=== PATIENT | female | born 1960 | race Caucasian/White ===

== ENCOUNTER 2018-05-13 14:39 | Observation (INO) ==
--- NOTE | 2018-05-13 15:28 | Emergency Department Note ---
Disposition Clinical Impression: Acute exacerbation of chronic obstructive airways disease Community acquired pneumonia Qualifiers: Laterality: left Lung location: upper lobe of lung Qualified Code(s): J18.1 - Lobar pneumonia, unspecified organism Disposition: Admitted As Inpatient Condition: Good Time of Disposition: 16:59 General Adult HPI - General Chief complaint: ED Shortness of Breath/Dyspnea Stated complaint: Bronchitis Time Seen by Provider: 05/13/18 14:55 Source: patient Mode of arrival: ambulatory Limitations: no limitations Nursing Notes Reviewed: Yes Vital Signs Reviewed: Yes - History of Present Illness HPI Narrative: 57 year old woman with hx significant for COPD on home O2 at night, lung carcinoma s/p radiation, and htn who presents to ED from Dr Mota's office for sob that is not improving. She has been having sob and productive cough for the past 1 month that initially was green production and had course of azithromycin and steroids which improved the green production and is now clear/ brown sputum. She has had multiple courses of steroids which improve her breathing minimally. While at Dr Mota's office today she received IM steroids and duonebs and sent to ED for concern of symptoms worsening and will end up with long hosp admission. She experiences similar symptoms couple times a year. She denies any fever/chills, diplopia, blurry vision, abdominal pain, or N/V but did endorse diffuse chest pain from coughing, neck/thoracic back pain from coughing that does not radiate. She continues to be everyday smoker. Pt Subjective Complaint: SOB, productive cough Onset (ago): month(s) (1) Pain Scale: 2 Consistency: constant Improves with: nothing Worsens with: nothing Associated symptoms: Reports: chest pain, cough. Denies: fever/chills, nausea/ vomiting Treatments Prior to Arrival: other (steroids and duoneb) - Related Data Home Medications Medication Instructions Recorded Confirmed Aspirin 325 mg PO DAILY 05/16/16 05/13/18 Atorvastatin Calcium [Lipitor] 20 mg PO DAILY 05/16/16 05/13/18 Metoprolol [Lopressor] 50 mg PO BID 05/16/16 05/13/18 amLODIPine [Norvasc] 10 mg PO DAILY 05/16/16 05/13/18 Albuterol Neb [Proventil Neb] 2.5 mg IH TID 06/17/17 05/13/18 Quetiapine Fumarate [SEROquel] 100 mg PO HS 02/24/18 05/13/18 Levothyroxine Sodium [Levo-T] 75 mcg PO DAILY 05/13/18 05/13/18 Mirtazapine [Remeron] 15 mg PO HS 05/13/18 05/13/18 OXcarbazepine [Oxcarbazepine] 300 mg PO BID 05/13/18 05/13/18 SUMAtriptan succinate [Imitrex] 50 mg PO DAILY PRN 05/13/18 05/13/18 Umeclidinium Brm/Vilanterol Tr 1 puff IH DAILY 05/13/18 05/13/18 [Anoro Ellipta 62.5-25 Mcg INH] Venlafaxine XR (24 HR) [Effexor XR] 225 mg PO DAILY 05/13/18 05/13/18 Previous Rx's Medication Instructions Recorded Albuterol Sulfate [Albuterol 1 puff IH Q4HR 30 Days inhaler 07/03/16 Inhaler] Ondansetron ODT [Zofran ODT] 4 mg SL Q8HR #60 tab.rapdis 04/15/17 Oxybutynin Chloride [Ditropan Xl] 10 mg PO DAILY #30 tab.er.24 05/20/17 Allergies Allergy/AdvReac Type Severity Reaction Status Date / Time levofloxacin [From Levaquin] Allergy Mild Hives Verified 05/13/18 14:54 diphenhydramine Allergy Hives Verified 05/13/18 14:54 [From Benadryl] egg Allergy Hives Verified 05/13/18 14:54 guaifenesin [From Robitussin] Allergy Hives Verified 05/13/18 14:54 latex Allergy Rash Verified 05/13/18 14:54 Penicillins Allergy Difficulty Verified 05/13/18 14:54 Breathing Tetracycline Allergy Difficulty Verified 05/13/18 14:54 Breathing acetic acid [From VoSol-HC] AdvReac Redness of Verified 05/13/18 14:54 Skin aloe vera AdvReac Redness of Verified 05/13/18 14:54 Skin bacitracin AdvReac Redness of Verified 05/13/18 14:54 [From Neosporin Skin ([id number])] capsaicin AdvReac Redness of Verified 05/13/18 14:54 Skin hydrocortisone AdvReac Redness of Verified 05/13/18 14:54 [From VoSol-HC] Skin Neomycin AdvReac Redness of Verified 05/13/18 14:54 [From Neosporin Skin ([id number])] polymyxin B AdvReac Redness of Verified 05/13/18 14:54 [From Neosporin Skin ([id number])] silver sulfadiazine AdvReac Redness of Verified 05/13/18 14:54 [From Silvadene] Skin All systems ED: reviewed and negative except as stated. Constitutional: Denies: fever, chills ENT ED: Reports: congestion Cardiovascular: Reports: chest pain. Denies: edema Respiratory: Reports: cough, dyspnea, wheezes, sputum production (clear/brown). Denies: hemoptysis Gastrointestinal: Denies: abdominal pain, nausea, vomiting Musculoskeletal: Reports: back pain, neck pain Past Medical History - Past Medical History Medical history: Reports: cancer, hyperlipidemia, hypertension, myocardial infarction, thyroid disease Psychiatric history: Reports: no psych history - Social History Smoking Status: Current every day smoker Smokeless Tobacco Status: No Alcohol use: Reports: none Drug use: Reports: none Physical Exam - General Limitations: no limitations General appearance: alert, in no apparent distress - Head Head exam: atraumatic, normocephalic, normal inspection - Eye Eye exam: Present: normal appearance - ENT ENT exam: mucous membranes moist - Neck Neck exam: Present: normal inspection, tenderness (mid cervical point tenderness ) - Chest Chest inspection: Present: normal inspection, symmetric chest wall rise, tenderness (reproducible with palpation) - Respiratory Respiratory exam: Present: wheezes. Absent: respiratory distress, accessory muscle use - Cardiovascular Cardiovascular exam: Present: regular rate, normal rhythm, normal heart sounds, +S1, +S2 - Abdominal Exam Abdominal exam: Present: soft, Non-Tender. Absent: distention, guarding, rebound, rigidity - Back Exam Back exam: Present: tenderness (point tenderness thoracic) - Neurological Exam Neurological exam: Present: alert - Psychiatric Psychiatric exam: Present: normal affect - Skin Skin exam: Present: warm, dry, intact, normal color Course Course Narrative: She has extensive pulm hx including COPD, lung cancer s/p radiation, and continues to smoke daily. She has had productive cough and sob for last 1 month. She has been on multiple courses steroids and 1 course azithromycin. She is satting 92% on rmair and improved with 2L o2. She has diffuse exp wheezes on auscultation. Will get cxr, cbc, bmp\, lactic, and double duoneb now and reassess breathing after. 1655: Breathing somewhat better since double dose duoneb. Says neck/back pain worse now and will give IR morphine now. CXR shows lingular airspace disease suggestive of pneumonia, will give ceftriaxone and azithromycin and admit to hospitalist service which they accepted. Vital Signs Temperature 97.8 F 05/13/18 14:53 Pulse Rate 68 05/13/18 14:53 Respiratory Rate 20 05/13/18 14:53 Blood Pressure 196/94 05/13/18 14:53 O2 Sat by Pulse Oximetry 92 05/13/18 14:53 Temperature 97.8 F 05/13/18 15:14 Pulse Rate 77 05/13/18 17:00 Respiratory Rate 20 05/13/18 17:00 Blood Pressure 163/81 05/13/18 17:00 O2 Sat by Pulse Oximetry 94 05/13/18 17:00 Oxygen Delivery Oxygen Delivery Nasal Cannula Medical Decision Making - Medical Records Medical records reviewed: Yes I reviewed the patient's medical records. - Lab Data Lab results reviewed: Yes I reviewed the patient's lab results. Result diagrams: 05/13/18 15:35 05/13/18 15:35 Lab Results 05/13/18 05/13/18 05/13/18 Range/Units 15:35 15:35 15:35 WBC 13.2 H (4.3-11.1) K/mcL RBC 4.22 (3.82-4.97) M/mcL Hgb 13.2 (11.5-15.4) g/dL Hct 38.9 (35.3-44.9) % MCV 92.2 (83.0-100.0) fL MCH 31.3 (28.0-33.3) pg MCHC 33.9 (31.6-35.5) g/dL RDW 13.9 (11.5-14.5) % Plt Count 295 (140-400) K/mcL MPV 9.0 L (9.4-12.4) fL Immature Gran % 0.5 (0-4) % Seg Neutrophils % 82.0 % Lymphocytes % 11.4 % Monocytes % 5.3 % Eosinophils % 0.6 % Basophils % 0.2 % Neutrophils # 10.9 H (1.6-8.9) K/mcL Lymphocytes # 1.5 (0.6-4.6) K/mcL Monocytes # 0.7 (0.0-1.3) K/mcL Eosinophils # 0.1 (0.0-0.6) K/mcL Basophils # 0.0 (0.0-0.2) K/mcL Sodium 122 L (136-145) mEq/L Potassium 3.6 (3.5-5.1) mEq/L Chloride 90 L (98-107) mEq/L Carbon Dioxide 25 (23-29) mEq/L BUN 6 (6-20) mg/dL Creatinine 0.55 L (0.60-1.20) mg/dL Est GFR ( Amer) > 60 (> 60) Est GFR (Non-Af Amer) > 60 (> 60) BUN/Creatinine Ratio 11 (6-26) Glucose 111 H (70-105) mg/dL Calculated Osmolality 252 L (280-300) Lactic Acid 0.9 (0.5-2.2) mmol/L Calcium 9.3 (8.6-10.3) mg/dL Troponin I < 0.03 (< 0.04) ng/mL - Radiology Data Radiology results reviewed: Yes I reviewed the patient's radiology results. Chest X-Ray 05/13/18 15:30 IMPRESSION: New airspace disease in the lingula suggesting pneumonia D/ / Vinh Caro MD / Vinh Caro MD Interpreting Provider: Vinh Caro MD - EKG Data EKG #1 EKG attestation: Yes I reviewed and interpreted this EKG. EKG results narrative: Patient's EKG shows a normal sinus rhythm at 67 bpm with poor R-wave progression across the anterior leads but no acute ST or T-wave changes are appreciated since compared to prior EKG from June 2016 no significant changes are appreciated. Attestation Statement - Attestation Attestation: I examined this patient and my medical decision-making was reviewed with the Resident Physician. I agree with the documented findings, disposition and treatment plan as described except to the extent set forth below. Patient is a 57-year-old white female with a history of COPD who has been having a productive cough with increasing shortness breath over the past month. Patient was treated on an outpatient basis with antibiotics and despite antibiotics and multiple doses of steroids has continued to worsen with her breathing. Patient is having audible wheezing with increased work of breathing and oxygen saturation on home O2 is at 92%. Patient was sent by her flush tester for evaluation to the ED today after being seen in the office. I agree with patient's physical exam findings as documented. Patient's EKG is normal sinus rhythm with no acute ischemia appreciated. Patient received breathing treatments and had received steroids at the office just prior to coming to the emergency department. Full lab evaluation cardiac workup and chest x-ray was obtained. Patient's labs show mild leukocytosis and lingular pneumonia is seen on chest x-ray. Patient has failed outpatient antibiotic therapy and will be admitted for further evaluation and IV antibiotics were initiated here in the ED. Breathing treatments have been started. Patient has had some mild improvement. Lactate is within normal limits. Case was discussed with hospitalist who accepted patient for admission.
[2018-05-13] MEDS ORDERED: Ipratropium/Albuterol Neb 3 ML IH ONE (15:30)
[2018-05-13 15:53] LABS: Basophils % 0.2 %; Eosinophils # 0.1 K/mcL (0.0-0.6); Eosinophils % 0.6 %; Hematocrit 38.9 % (35.3-44.9); Hemoglobin 13.2 g/dL (11.5-15.4); Immature Granulocytes % 0.5 % (0-4); Lymphocytes # 1.5 K/mcL (0.6-4.6); Lymphocytes % 11.4 %; Mean Corpuscular HGB Conc 33.9 g/dL (31.6-35.5); Mean Corpuscular Hemoglobin 31.3 pg (28.0-33.3); Mean Corpuscular Volume 92.2 fL (83.0-100.0); Monocytes # 0.7 K/mcL (0.0-1.3); Monocytes % 5.3 %; Neutrophils # 10.9 K/mcL (1.6-8.9); Platelet Count 295 K/mcL (140-400); Red Blood Count 4.22 M/mcL (3.82-4.97); Red Cell Distribution Width 13.9 % (11.5-14.5)
[2018-05-13 16:14] LABS: BUN/Creatinine Ratio 11 (6-26); Blood Urea Nitrogen 6 mg/dL (6-20); Calcium 9.3 mg/dL (8.6-10.3); Carbon Dioxide 25 mEq/L (23-29); Chloride 90 mEq/L (98-107); Glucose 111 mg/dL (70-105); Osmolality,Calculated 252 (280-300); Potassium 3.6 mEq/L (3.5-5.1); Sodium 122 mEq/L (136-145); eGFR For Non-African Americans > 60 (> 60)
[2018-05-13 16:15] LABS: Troponin I < 0.03 ng/mL (< 0.04)
[2018-05-13] MEDS ORDERED: Azithromycin 250 MG TABLET PO ONE (16:20)
[2018-05-13] MEDS ORDERED: cefTRIAXone 1,000 MG in Water for inj. (sterile) 20 ML 10 ML IVP ONE (16:20)
[2018-05-13] MEDS ORDERED: *HR* Morphine Immed Rel 30 MG TABLET PO ONE (16:25)
--- NOTE | 2018-05-13 17:26 | Internal Med History&Physical ---
Date of Encounter: 05/13/18 Time of Encounter: 17:24 Internal Medicine - H&P: HPI Chief complaint: sob and productive cough Admitted From: Emergency Dept Plans for Post Hospital Care: Home History of present illness: Ms. 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 patient undergoing radiation to the lung also had history of hypertension, CAD has had about 3 stents in the past, COPD on home O2 at night and high cholesterol patient was sent from doctors office to the emergency room due to shortness of breath and productive cough has been ongoing for about a month patient was treated with po Zithromax as an outpatient she got better and then became worse again with increased shortness of breath and r wheezing and increased shortness of breath and was sent into the emergency room emergency room given breathing treatment chest x-ray shows a left lingula pneumonia white count is 13.2 on exam patient has bilateral active wheezing patient admitted for COPD exacerbation and treatment for pneumonia. Past Med Surg Social Fam HX - Past Medical History Medical history: cancer, hyperlipidemia, hypertension, myocardial infarction, thyroid disease Psychiatric history: no psych history - Social History Smoking Status: Current every day smoker Smokeless Tobacco Status: No Alcohol use: none Drug use: none Internal Medicine - H&P: Meds Aspirin 325 mg PO DAILY 05/16/16 [History] Atorvastatin Calcium [Lipitor] 20 mg PO DAILY 05/16/16 [History] Metoprolol [Lopressor] 50 mg PO BID 05/16/16 [History] amLODIPine [Norvasc] 10 mg PO DAILY 05/16/16 [History] Albuterol Sulfate [Albuterol Inhaler] 1 puff IH Q4HR 30 Days inhaler 07/03/16 [ Rx] Ondansetron ODT [Zofran ODT] 4 mg SL Q8HR #60 tab.rapdis 04/15/17 [Rx] Oxybutynin Chloride [Ditropan Xl] 10 mg PO DAILY #30 tab.er.24 05/20/17 [Rx] Albuterol Neb [Proventil Neb] 2.5 mg IH TID 06/17/17 [History] Quetiapine Fumarate [SEROquel] 100 mg PO HS 02/24/18 [History] Levothyroxine Sodium [Levo-T] 75 mcg PO DAILY 05/13/18 [History] Mirtazapine [Remeron] 15 mg PO HS 05/13/18 [History] OXcarbazepine [Oxcarbazepine] 300 mg PO BID 05/13/18 [History] SUMAtriptan succinate [Imitrex] 50 mg PO DAILY PRN 05/13/18 [History] Umeclidinium Brm/Vilanterol Tr [Anoro Ellipta 62.5-25 Mcg INH] 1 puff IH DAILY 05/13/18 [History] Venlafaxine XR (24 HR) [Effexor XR] 225 mg PO DAILY 05/13/18 [History] 3 Allergy/AdvReac Type Severity Reaction Status Date / Time levofloxacin [From Levaquin] Allergy Mild Hives Verified 05/13/18 14:54 diphenhydramine Allergy Hives Verified 05/13/18 14:54 [From Benadryl] egg Allergy Hives Verified 05/13/18 14:54 guaifenesin [From Robitussin] Allergy Hives Verified 05/13/18 14:54 latex Allergy Rash Verified 05/13/18 14:54 Penicillins Allergy Difficulty Verified 05/13/18 14:54 Breathing Tetracycline Allergy Difficulty Verified 05/13/18 14:54 Breathing acetic acid [From VoSol-HC] AdvReac Redness of Verified 05/13/18 14:54 Skin aloe vera AdvReac Redness of Verified 05/13/18 14:54 Skin bacitracin AdvReac Redness of Verified 05/13/18 14:54 [From Neosporin Skin ([id number])] capsaicin AdvReac Redness of Verified 05/13/18 14:54 Skin hydrocortisone AdvReac Redness of Verified 05/13/18 14:54 [From VoSol-HC] Skin Neomycin AdvReac Redness of Verified 05/13/18 14:54 [From Neosporin Skin ([id number])] polymyxin B AdvReac Redness of Verified 05/13/18 14:54 [From Neosporin Skin ([id number])] silver sulfadiazine AdvReac Redness of Verified 05/13/18 14:54 [From Silvadene] Skin All Systems PM: A 10-system review of systems was performed and is negative for pertinent findings except as documented above in the HPI. - Constitutional Vitals: Temp Pulse Resp BP Pulse Ox 97.8 F 77 20 163/81 94 05/13/18 15:14 05/13/18 17:00 05/13/18 17:00 05/13/18 17:00 05/13/18 17:00 General appearance: Present: mild distress Exam: done - Eye Eye exam: Present: PERRL, conjuntiva pink, sclera anicteric Pupils: Present: PERRL - Neck Neck exam general surgery: Present: supple, trachea midline. Absent: lymphadenopathy - Respiratory Respiratory exam: Present: decreased breath sounds, prolonged expiratory phase, wheezes - Cardiovascular Cardiovascular exam: Present: RRR, +S1, +S2. Absent: diastolic murmur, gallop, rubs, systolic murmur - GI/Abdominal GI/Abdominal exam: Present: normal bowel sounds, soft, no peritoneal signs. Absent: distended, tenderness - Extremities Exam Extremities exam: Present: warm, radial pulses palpable and symmetrical. Absent : calf tenderness, cyanotic, pedal edema Internal Med - H&P Results - Labs CBC & Chem 7: 05/13/18 15:35 05/13/18 15:35 - Assessment and plan (1) CAD (coronary artery disease) Current Visit: Yes Status: Acute Assessment and plan: Patient with history of stent about 3 stents in the past no chest pain with resume her continue home medication Qualifiers: Coronary Disease-Associated Artery/Lesion type: [place] artery [place] vs. transplanted heart: [place] heart Associated angina: without angina Qualified Code(s): I25.10 - Atherosclerotic heart disease of [place] coronary artery without angina pectoris (2) HTN (hypertension) Current Visit: Yes Status: Chronic Assessment and plan: Chronic and uncontrolled with resume home medication and make adjustment for better blood pressure control Qualifiers: Hypertension type: essential hypertension Qualified Code(s): I10 - Essential (primary) hypertension (3) Hyperlipidemia Current Visit: Yes Status: Chronic Assessment and plan: Chronic we will recheck in a.m. Qualifiers: Hyperlipidemia type: pure hypercholesterolemia Qualified Code(s): E78.00 - Pure hypercholesterolemia, unspecified; E78.0 - Pure hypercholesterolemia (4) Lung metastases Current Visit: No Status: Chronic Assessment and plan: Patient with rectal cancer resection in the past and recently diagnosed with a lung metastasis and undergoing radiation therapy Qualifiers: Laterality: unspecified laterality Qualified Code(s): C78.00 - Secondary malignant neoplasm of unspecified lung (5) Smoker unmotivated to quit Current Visit: No Status: Chronic (6) Acute exacerbation of chronic obstructive airways disease Current Visit: Yes Status: Acute Assessment and plan: COPD exacerbation due to pneumonia (7) Community acquired pneumonia Current Visit: Yes Status: Acute Assessment and plan: Community-acquired pneumonia with failed outpatient treatment Was started on Levaquin IV and send sputum and blood cultures Qualifiers: Laterality: left Lung location: upper lobe of lung Qualified Code(s): J18.1 - Lobar pneumonia, unspecified organism (8) Rectal cancer Current Visit: No Status: Acute Assessment and plan: Patient had resection with colostomy - Time Spent With Patient Total time spent is greater than 50% in coordination of care (as documented) at patient's floor/unit and/or counseling patient:
[2018-05-13] MEDS ORDERED: Naloxone 0.4 MG/ML INJ IVP PRN (17:36)
[2018-05-13] MEDS ORDERED: SUMAtriptan succinate 50 MG TABLET PO PRN (17:40)
[2018-05-13] MEDS ORDERED: Ipratropium/Albuterol Neb 3 ML IH PRN (17:43)
[2018-05-13] MEDS: Ipratropium/Albuterol Neb 3 ML IH SCH ×2 (20:27→23:40)
[2018-05-13] MEDS: 0.9 % Sodium Chloride 1,000 ML IVC SCH (20:45)
[2018-05-13] MEDS: Mirtazapine 15 MG TABLET PO SCH (20:48)
[2018-05-13] MEDS: OXcarbazepine 150 MG TABLET PO SCH (20:48)
[2018-05-13] MEDS: traMADol 50 MG TABLET PO PRN (20:48)
[2018-05-14] MEDS: MethylPREDNISolone 40 MG/ML VIAL IVP SCH ×4 (00:29→23:34)
[2018-05-14] MEDS: Acetaminophen 325 MG TABLET PO PRN ×2 (01:48→05:56)
[2018-05-14] MEDS: Ipratropium/Albuterol Neb 3 ML IH SCH ×6 (03:59→23:48)
[2018-05-14 04:14] LABS: Hematocrit 36.3 % (35.3-44.9); Hemoglobin 12.3 g/dL (11.5-15.4); Mean Corpuscular HGB Conc 33.9 g/dL (31.6-35.5); Mean Corpuscular Hemoglobin 31.2 pg (28.0-33.3); Mean Corpuscular Volume 92.1 fL (83.0-100.0); Mean Platelet Volume 9.1 fL (9.4-12.4); Platelet Count 288 K/mcL (140-400); Red Blood Count 3.94 M/mcL (3.82-4.97); Red Cell Distribution Width 14.1 % (11.5-14.5)
[2018-05-14 04:41] LABS: Alanine Aminotransferase 11 Units/L (7-52); Albumin 3.9 g/dL (3.5-5.7); Albumin/Globulin Ratio 1.4 (1.1-2.2); Alkaline Phosphatase 85 Units/L (34-104); Aspartate Amino Transferase 10 Units/L (13-39); BUN/Creatinine Ratio 25 (6-26); Bilirubin,Total 0.2 mg/dL (0.3-1.0); Blood Urea Nitrogen 14 mg/dL (6-20); Carbon Dioxide 23 mEq/L (23-29); Chloride 97 mEq/L (98-107); Cholesterol 188 mg/dL (< 200); Globulin 2.7 g/dL (2.4-3.5); Glucose 161 mg/dL (70-105); HDL Cholesterol 62 mg/dL (40-59); LDL Cholesterol,Calculated 111 mg/dL (0-99); Magnesium 1.9 mg/dL (1.6-2.6); Osmolality,Calculated 268 (280-300); Potassium 4.8 mEq/L (3.5-5.1); Sodium 127 mEq/L (136-145); Total Protein 6.6 g/dL (6.4-8.9); Triglycerides 77 mg/dL (< 150); eGFR For Non-African Americans > 60 (> 60)
[2018-05-14] MEDS: traMADol 50 MG TABLET PO PRN (05:20)
[2018-05-14] MEDS ORDERED: Levofloxacin 750 MG/150 ML 750 MG/150 ML BAG IVPB SCH (09:00)
[2018-05-14] MEDS: OXcarbazepine 150 MG TABLET PO SCH ×2 (09:16→20:56)
[2018-05-14] MEDS: Aspirin 325 MG TABLET PO SCH (09:16)
[2018-05-14] MEDS: amLODIPine 5 MG TABLET PO SCH (09:17)
[2018-05-14] MEDS: Venlafaxine XR (24 HR) 75 MG CAP.ER.24H PO SCH (09:18)
--- NOTE | 2018-05-14 09:18 | Internal Med Progress Note ---
Hospitalist Progress Note - Encounter Date of Encounter: 05/14/18 Time of Encounter: 09:15 - Subjective Interval History: Examined at bedside today, no acute changes overnight. Continuing to report shortness of breath, worsens with exertion - Exam Vitals: Temp Pulse Resp BP Pulse Ox 98.0 F 75 17 154/91 94 05/14/18 06:55 05/14/18 06:55 05/14/18 06:55 05/14/18 06:55 05/14/18 06:55 Exam: PHYSICAL EXAMINATION: GENERAL: The patient is an ill-appearing female with mild respiratory distress. She is alert and oriented x3. HEENT: Head is normocephalic and atraumatic. Extraocular muscles are intact. Pupils are equal, round, and reactive to light and accommodation. NECK: Supple. No carotid bruits. No lymphadenopathy or thyromegaly. LUNGS: Decreased breath sounds, prolonged expiratory phase and expiratory wheezing HEART: Regular rate and rhythm, S1, S2 without murmur. ABDOMEN: Soft, nontender, and nondistended. Positive bowel sounds. No hepatosplenomegaly was noted. EXTREMITIES: Without any cyanosis, clubbing, rash, lesions or edema. SKIN: No ulceration or induration present. - Assessment and Plan (1) Community acquired pneumonia Current Visit: Yes Status: Acute Assessment and Plan: Presented from pulmonology office Reporting a one-month history of shortness of breath and a productive cough Producing brown/isaac sputum 1 month Chest x-ray shows new airspace disease in the lingula suggestive of pneumonia Continue to treat with aerosols, IV steroids and Levaquin Send sputum for cultures Check urine antigens for strep pneumo and legionella Blood cultures pending Consult to pulmonology, thank you and I appreciate your recommendations 05/14--stable overnight, continuing to require supplemental O2 at 2 L nasal cannula. Continuing to have dyspnea with exertion and productive cough. Lungs are clear/diminished throughout with expiratory wheezing, prolonged expiratory phase. Continue aerosols, IV steroids and Levaquin. Discussed IV antibiotics which upset the patient as she reports a sensitivity to Levaquin however this is not a true allergy. Otherwise patient in agreement with plan of care. She is worried that the Levaquin will cause Clostridium difficile. We will add probiotics. She has remained afebrile and does not appear to be toxic. (2) Acute exacerbation of chronic obstructive airways disease Current Visit: Yes Status: Acute Assessment and Plan: 2/2 community aquired PNA treat as above (3) CAD (coronary artery disease) Current Visit: Yes Status: Acute Assessment and Plan: CAD per hx denies any chest pain 3 stents per hx continue cardiac meds (4) HTN (hypertension) Current Visit: Yes Status: Chronic Assessment and Plan: HTN per hx; stable, continue anti HTN med (5) Hyperlipidemia Current Visit: Yes Status: Chronic Assessment and Plan: HLD per hx; continue statin (6) Rectal cancer Current Visit: No Status: Acute Assessment and Plan: per hx follow with [facility] f/u scheduled 05/28 per patient (7) Lung metastases Current Visit: No Status: Chronic Assessment and Plan: as above consult pulmonology for further evaluation and recommendations presented with dyspnea, CAP, AECOPD found to have hyponatremia (8) Smoker unmotivated to quit Current Visit: No Status: Chronic - Time Spent with Patient Total time spent is greater than 50% in coordination of care (as documented) at patient's floor/unit and/or counseling patient: less than 15 minutes Plan of Care Discussed with: patient Internal Medicine: Result - Labs CBC & Chem 7: 05/14/18 03:55 05/14/18 03:55 Labs: Short CBC 05/14/18 Range/Units 03:55 WBC 12.4 H (4.3-11.1) K/mcL Hgb 12.3 (11.5-15.4) g/dL Hct 36.3 (35.3-44.9) % Plt Count 288 (140-400) K/mcL BMP 05/14/18 03:55 Sodium 127 L Potassium 4.8 D Chloride 97 L Carbon Dioxide 23 BUN 14 Creatinine 0.57 L Glucose 161 H Calcium 9.0 Cardiac Enzymes 05/13/18 05/14/18 Range/Units 21:43 03:55 Troponin I < 0.03 < 0.03 (< 0.04) ng/mL Liver Function 05/14/18 Range/Units 03:55 Total Bilirubin 0.2 L (0.3-1.0) mg/dL AST 10 L (13-39) Units/L ALT 11 (7-52) Units/L Alkaline Phosphatase 85 (34-104) Units/L Albumin 3.9 (3.5-5.7) g/dL Consult Discharge Plan - Plan Referrals: Baltazar Chirinos DO [Primary Care Provider] - (1) Community acquired pneumonia Qualifiers: Laterality: left Lung location: upper lobe of lung Qualified Code(s): J18.1 - Lobar pneumonia, unspecified organism (3) CAD (coronary artery disease) Qualifiers: Coronary Disease-Associated Artery/Lesion type: [place] artery [place] vs. transplanted heart: [place] heart Associated angina: without angina Qualified Code(s): I25.10 - Atherosclerotic heart disease of [place] coronary artery without angina pectoris (4) HTN (hypertension) Qualifiers: Hypertension type: essential hypertension Qualified Code(s): I10 - Essential (primary) hypertension (5) Hyperlipidemia Qualifiers: Hyperlipidemia type: pure hypercholesterolemia Qualified Code(s): E78.00 - Pure hypercholesterolemia, unspecified; E78.0 - Pure hypercholesterolemia (7) Lung metastases Qualifiers: Laterality: unspecified laterality Qualified Code(s): C78.00 - Secondary malignant neoplasm of unspecified lung
[2018-05-14] MEDS: 0.9 % Sodium Chloride 1,000 ML IVC SCH (09:21)
--- NOTE | 2018-05-14 09:30 | Pulmonology Consult Note ---
<Mateo Mota W - Last Filed: 05/14/18 16:50> Date of Encounter: 05/14/18 Medications and Allergies Aspirin 325 mg PO DAILY 05/16/16 [History] Atorvastatin Calcium [Lipitor] 20 mg PO DAILY 05/16/16 [History] Metoprolol [Lopressor] 50 mg PO BID 05/16/16 [History] amLODIPine [Norvasc] 10 mg PO DAILY 05/16/16 [History] Albuterol Sulfate [Albuterol Inhaler] 1 puff IH Q4HR 30 Days inhaler 07/03/16 [ Rx] Ondansetron ODT [Zofran ODT] 4 mg SL Q8HR #60 tab.rapdis 04/15/17 [Rx] Oxybutynin Chloride [Ditropan Xl] 10 mg PO DAILY #30 tab.er.24 05/20/17 [Rx] Albuterol Neb [Proventil Neb] 2.5 mg IH TID 06/17/17 [History] Quetiapine Fumarate [SEROquel] 100 mg PO HS 02/24/18 [History] Levothyroxine Sodium [Levo-T] 75 mcg PO DAILY 05/13/18 [History] Mirtazapine [Remeron] 15 mg PO HS 05/13/18 [History] OXcarbazepine [Oxcarbazepine] 300 mg PO BID 05/13/18 [History] SUMAtriptan succinate [Imitrex] 50 mg PO DAILY PRN 05/13/18 [History] Umeclidinium Brm/Vilanterol Tr [Anoro Ellipta 62.5-25 Mcg INH] 1 puff IH DAILY 05/13/18 [History] Venlafaxine XR (24 HR) [Effexor XR] 225 mg PO DAILY 05/13/18 [History] 3 Allergy/AdvReac Type Severity Reaction Status Date / Time levofloxacin [From Levaquin] Allergy Mild Hives Verified 05/13/18 14:54 diphenhydramine Allergy Hives Verified 05/13/18 14:54 [From Benadryl] egg Allergy Hives Verified 05/13/18 14:54 guaifenesin [From Robitussin] Allergy Hives Verified 05/13/18 14:54 latex Allergy Rash Verified 05/13/18 14:54 Penicillins Allergy Difficulty Verified 05/13/18 14:54 Breathing Tetracycline Allergy Difficulty Verified 05/13/18 14:54 Breathing acetic acid [From VoSol-HC] AdvReac Redness of Verified 05/13/18 14:54 Skin aloe vera AdvReac Redness of Verified 05/13/18 14:54 Skin bacitracin AdvReac Redness of Verified 05/13/18 14:54 [From Neosporin Skin ([id number])] capsaicin AdvReac Redness of Verified 05/13/18 14:54 Skin hydrocortisone AdvReac Redness of Verified 05/13/18 14:54 [From VoSol-HC] Skin Neomycin AdvReac Redness of Verified 05/13/18 14:54 [From Neosporin Skin (cut-krw-[id number])] polymyxin B AdvReac Redness of Verified 05/13/18 14:54 [From Neosporin Skin ([id number])] silver sulfadiazine AdvReac Redness of Verified 05/13/18 14:54 [From Silvadene] Skin All Systems: The remainder of the systems were reviewed and are negative Physical Examination Vital Signs: Vital Signs, Last 4 Hours Temp Pulse Resp BP Pulse Ox 05/14/18 16:24 97.8 F 82 16 130/72 98 Results - Laboratory Findings CBC and BMP: 05/14/18 03:55 05/14/18 03:55 Abnormal lab findings: Abnormal lab results WBC 12.4 K/mcL (4.3-11.1) H 05/14/18 03:55 MPV 9.1 fL (9.4-12.4) L 05/14/18 03:55 Neutrophils # 10.9 K/mcL (1.6-8.9) H 05/13/18 15:35 Sodium 127 mEq/L (136-145) L 05/14/18 03:55 Chloride 97 mEq/L (98-107) L 05/14/18 03:55 Creatinine 0.57 mg/dL (0.60-1.20) L 05/14/18 03:55 Glucose 161 mg/dL (70-105) H 05/14/18 03:55 Calculated Osmolality 268 (280-300) L 05/14/18 03:55 Total Bilirubin 0.2 mg/dL (0.3-1.0) L 05/14/18 03:55 AST 10 Units/L (13-39) L 05/14/18 03:55 B-Natriuretic Peptide 183 pg/mL (Less than 100) H 05/14/18 03:55 LDL Cholesterol, Calc 111 mg/dL (0-99) H 05/14/18 03:55 HDL Cholesterol 62 mg/dL (40-59) H 05/14/18 03:55 - Microbiology Findings Microbiology Findings: Microbiology, Last 48 Hours 05/14/18 14:40 Legionella Antigen - Final Urine,Clean Catch Streptococcus pneumoniae Antigen (M - Final - Clinical Findings Intake & Output: Intake & Output 05/14/18 05/14/18 05/14/18 07:59 15:59 23:59 Intake Total 1120 / 1120 Balance 1120 / 1120 Consult Discharge Plan - Plan Referrals: Baltazar Chirinos DO [Primary Care Provider] - - Attending Attestation I examined this patient and my medical decision-making was reviewed with the Resident Physician. I agree with the documented findings, disposition and treatment plan as described except to the extent set forth below. We independently had [id number] contact with the patient Patient seen and examined at bedside Labs, radiology, chart personally reviewed. Impression: 1. AECOPD 2. Pneumonia 3. Shoulder Pain-suspected musculoskeletal pain cannot rule out malignancy 4. Tobacco Abuse Recs: 1. Agree with IV steroids today with transition to oral glucocorticoids tomorrow prednisone 40 mg with a plan to taper over 2 weeks. Cont scheduled bronchodilators; 2. Transition from Levaquin because of history of C. difficile with this antibiotic as well as possibility of QT prolongation to third-generation cephalosporin (ceftriaxone) and doxycycline did not plan to treat for 7 day course she has a penicillin allergy but has taken cephalexin in the past without untoward effect. Sputum blood cultures pending 3. Recommend CT of the chest and the shoulder (noncontrasted); narcotic as needed for pain control 4. Tobacco cessation counseling given <Marvin Donaldson - Last Filed: 05/14/18 17:17> Date of Encounter: 05/14/18 Time of Encounter: 09:00 Assessment and Plan (1) Pneumonia Current Visit: Yes Status: Acute - secondary to her Hx of COPD, and extensive smoking history (1 pack a day for 30 yrs) - her CXR showed left lingular PNA - currently on solumedrol 40mg, levafloxacin and duonebs. Recommended transition from Levaquin to 3rd generation cephalosporin and doxycycline because of possibility of QT prolongation. - currently on room air satting > 89%, use suppl oxygen as needed to keep the sats optimal. Blood and sputum cultures pending Qualifiers: Qualified Code(s): J18.9 - Pneumonia, unspecified organism (2) COPD (chronic obstructive pulmonary disease) Current Visit: Yes Status: Acute -Patient has a history of COPD. She takes Proventil, Anoro ellipta at home -Endorsed shortness of breath and productive cough when she came to see her fitness/wellness director yesterday and that is when she was sent to the ER. Chest x-ray in the ED showed left lingula pneumonia. -WBC was 13.2 on admission currently trending down to 12.4. Patient is currently on solumedrol 40 mg, DuoNeb's when necessary and Levaquin. Transition to third generation cephalosporin because of possibility of QT prolongation -Transition to PO prednisone tomorrow and taper over 2 weeks. Qualifiers: Qualified Code(s): J44.9 - Chronic obstructive pulmonary disease, unspecified (3) Shoulder pain Current Visit: Yes Status: Acute -Patient endorses left shoulder pain since yesterday. It is likely that the left shoulder pain could be secondary to too much of agitation secondary to progressive coughing. However, one cannot rule out the possibility of malignancy given her history of colon cancer. 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 Her last Chest CT showed a left lung nodules which was stable compared to the previous exam. There were also evidence for superior mediainal lymph node . - patient is scheduled for her repeat CT in a month from now (5) Tobacco abuse Current Visit: Yes Status: Acute -She has a history of tobacco abuse. Currently she has no plans to discontinue smoking. -Consult on smoking cessation. 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 Patient endorses she has been having SOb and productive cough for the last one month and was prescribed Zithromax by her PCP, which did not help with her symptoms. She saw Dr Garcia yesterday and was sent to the ED for her worsening symptoms. Most recent CXR showed left lingular pneumonia with an elevated WBC (13.2) . Patient is currently on duonebs , solumedrol 40mg , and levofloxacin . Patient sees Dr Olivares at the [facility] and recelty had astereotactic radiotherapy. Her last CT Scan of the chest showed Left lung nodules which were stable compared to the previous exam. Patient is scheduled to follow up for her next CT in a month. Her last biopsy of the left lower lobe lung nodule on 2016 had showed adenocarcinoma consistent wth metastatic colorectal cancer. \ Patient was endorsing some moderate distress when i met her at the bedside. She endorsed L shoulder pain . Her physical exam showed bilateral expiratory wheezing. Past Med Surg Social Fam HX - Past Medical History Medical history: cancer, hyperlipidemia, hypertension, myocardial infarction, thyroid disease Psychiatric history: no psych history - Social History Smoking Status: Current every day smoker Smokeless Tobacco Status: No Alcohol use: none Drug use: none - Family History Mother Living Status: Hx Family Cardiac Disorders: Yes Father Living Status: All Systems: The remainder of the systems were reviewed and are negative Physical Examination Vital Signs: Vital Signs, Last 4 Hours Temp Pulse Resp BP Pulse Ox 05/14/18 06:55 98.0 F 75 17 154/91 94 General appearance: alert (mild distress due to L shoulder pain) Auscultation: bilateral: wheezes (expiratry wheezing) Cardiovascular: regular rate and rhythm Gastrointestinal: soft, non-tender, non-distended Extremities: no cyanosis, no edema, no clubbing Musculoskeletal: other (L shoulder pain) Results - Laboratory Findings CBC and BMP: 05/14/18 03:55 05/14/18 03:55 Abnormal lab findings: Abnormal lab results WBC 12.4 K/mcL (4.3-11.1) H 05/14/18 03:55 MPV 9.1 fL (9.4-12.4) L 05/14/18 03:55 Neutrophils # 10.9 K/mcL (1.6-8.9) H 05/13/18 15:35 Sodium 127 mEq/L (136-145) L 05/14/18 03:55 Chloride 97 mEq/L (98-107) L 05/14/18 03:55 Creatinine 0.57 mg/dL (0.60-1.20) L 05/14/18 03:55 Glucose 161 mg/dL (70-105) H 05/14/18 03:55 Calculated Osmolality 268 (280-300) L 05/14/18 03:55 Total Bilirubin 0.2 mg/dL (0.3-1.0) L 05/14/18 03:55 AST 10 Units/L (13-39) L 05/14/18 03:55 B-Natriuretic Peptide 183 pg/mL (Less than 100) H 05/14/18 03:55 LDL Cholesterol, Calc 111 mg/dL (0-99) H 05/14/18 03:55 HDL Cholesterol 62 mg/dL (40-59) H 05/14/18 03:55 - Clinical Findings Intake & Output: Intake & Output 05/13/18 05/14/18 05/14/18 23:59 07:59 15:59 Intake Total 1000 / 1000 Balance 1000 / 1000 Weight 80.3 kg
[2018-05-14] MEDS: Umeclidinium Brm/Vilanterol Tr [Anoro Ellipta 62.5-2 IH SCH (10:00)
--- NOTE | 2018-05-14 14:32 | Electrocardiograph Report ---
[address] [address] Test Date: 2018-05-13 Pat Name: Nuris Joy Department: EXAM2 Room: 3B Gender: F Optometric Coordinator: : 1960 Requested By: Yohana Jackson Order Number: [id number] Reading MD: Kaitlin Shahid Measurements Intervals [place] Rate: 67 P: 72 MS: 171 QRS: 41 QRSD: 117 T: 77 QT: 419 QTc: 443 Interpretive Statements Sinus rhythm Probable left atrial enlargement Nonspecific intraventricular conduction delay Electronically Signed On 05-14-2018 14:30:36 EDT by Kaitlin Shahid
[2018-05-14] MEDS ORDERED: Albuterol 2.5 MG/3 ML NEBULIZER IH PRN (15:13)
[2018-05-14] MEDS: *HR* HYDROcodone/Acet 5/325 mg TABLET PO PRN (15:28)
[2018-05-14] MEDS ORDERED: Doxycycline 100 MG in 0.9 % Sodium Chloride Mini Bag 100 ML IVPB SCH (18:00)
[2018-05-14] MEDS ORDERED: cefTRIAXone 2,000 MG in Water for inj. (sterile) 20 ML 20 ML IVP SCH (18:00)
[2018-05-14] MEDS: Mirtazapine 15 MG TABLET PO SCH (20:56)
[2018-05-15] MEDS: *HR* HYDROcodone/Acet 5/325 mg TABLET PO PRN ×2 (01:51→12:47)
[2018-05-15] MEDS: Ipratropium/Albuterol Neb 3 ML IH SCH ×4 (03:56→15:50)
[2018-05-15] MEDS ORDERED: *HR* Enoxaparin 40 MG/0.4 ML SYRINGE SQ SCH (06:00)
--- NOTE | 2018-05-15 07:18 | Pulmonology Progress Note ---
<Marvin Donaldson - Last Filed: 05/15/18 11:01> Date of Encounter: 05/15/18 Assessment and Plan (1) Pneumonia Current Visit: Yes Status: Acute Qualifiers: Qualified Code(s): J18.9 - Pneumonia, unspecified organism (2) COPD (chronic obstructive pulmonary disease) Current Visit: Yes Status: Acute Qualifiers: Qualified Code(s): J44.9 - Chronic obstructive pulmonary disease, unspecified (3) Shoulder pain Current Visit: Yes Status: Acute Qualifiers: Qualified Code(s): M25.512 - Pain in left shoulder (4) Lung nodule Current Visit: Yes Status: Acute (5) Tobacco abuse Current Visit: Yes Status: Acute Subjective Principal diagnosis: SOB Interval history: no acute events overnight. Patient endorses she is feeling better than yesterday. She endorses no difficulty amblating from her bed to the hallway. I saw her walking the hallways of the floor without any difficulty. She continues to be on day 2 of solumedrol, and is satting at 95% on 2L NC. Patient chest CT showed some bronchial wall thickening and ill- defined centrilobular nodules with evidence of bronchiolitis. Objective PUL Vital signs: Last Vital Signs Temp 98.3 F 05/15/18 03:08 Pulse 62 05/15/18 03:08 Resp 19 05/15/18 08:21 BP 162/82 05/15/18 06:44 Pulse Ox 95 05/15/18 08:21 General appearance: no acute distress Effort: mildly labored Auscultation: bilateral: wheezes (better than yesterday) Percussion: bilateral: not dull Cardiovascular: regular rate and rhythm Gastrointestinal: soft, non-tender, non-distended Extremities: no cyanosis, no edema, no clubbing Results - Laboratory Findings CBC and BMP: 05/15/18 09:35 05/15/18 09:35 Abnormal lab findings: Abnormal lab results WBC 17.3 K/mcL (4.3-11.1) H 05/15/18 09:35 RDW 14.8 % (11.5-14.5) H 05/15/18 09:35 MPV 9.3 fL (9.4-12.4) L 05/15/18 09:35 Neutrophils # 15.1 K/mcL (1.6-8.9) H 05/15/18 09:35 Glucose 217 mg/dL (70-105) H 05/15/18 09:35 Total Bilirubin 0.2 mg/dL (0.3-1.0) L 05/14/18 03:55 AST 10 Units/L (13-39) L 05/14/18 03:55 B-Natriuretic Peptide 183 pg/mL (Less than 100) H 05/14/18 03:55 LDL Cholesterol, Calc 111 mg/dL (0-99) H 05/14/18 03:55 HDL Cholesterol 62 mg/dL (40-59) H 05/14/18 03:55 Entero/Rhino (PCR) DETECTED (Not Detect) A 05/15/18 07:00 - Microbiology Findings Microbiology Findings: Microbiology, Last 48 Hours 05/14/18 14:40 Legionella Antigen - Final Urine,Clean Catch Streptococcus pneumoniae Antigen (M - Final - Clinical Findings Intake & Output: Intake & Output 05/14/18 05/15/18 05/15/18 23:59 07:59 15:59 Intake Total 170 / 170 1500 / 1500 120 / 120 Output Total 1200 / 1200 Balance -1030 / -1030 1500 / 1500 120 / 120 Weight 81.2 kg Consult Discharge Plan - Plan Referrals: Baltazar Chirinos DO [Primary Care Provider] - 05/28/18 2:10 pm <Mateo Mota W - Last Filed: 05/15/18 13:11> Date of Encounter: 05/15/18 Time of Encounter: 07:18 Objective PUL Vital signs: Last Vital Signs Temp 98.3 F 05/15/18 03:08 Pulse 62 05/15/18 03:08 Resp 19 05/15/18 03:56 BP 162/82 05/15/18 06:44 Pulse Ox 95 05/15/18 03:56 Results - Laboratory Findings CBC and BMP: 05/15/18 09:35 05/15/18 09:35 Abnormal lab findings: Abnormal lab results WBC 12.4 K/mcL (4.3-11.1) H 05/14/18 03:55 MPV 9.1 fL (9.4-12.4) L 05/14/18 03:55 Neutrophils # 10.9 K/mcL (1.6-8.9) H 05/13/18 15:35 Sodium 127 mEq/L (136-145) L 05/14/18 03:55 Chloride 97 mEq/L (98-107) L 05/14/18 03:55 Creatinine 0.57 mg/dL (0.60-1.20) L 05/14/18 03:55 Glucose 161 mg/dL (70-105) H 05/14/18 03:55 Calculated Osmolality 268 (280-300) L 05/14/18 03:55 Total Bilirubin 0.2 mg/dL (0.3-1.0) L 05/14/18 03:55 AST 10 Units/L (13-39) L 05/14/18 03:55 B-Natriuretic Peptide 183 pg/mL (Less than 100) H 05/14/18 03:55 LDL Cholesterol, Calc 111 mg/dL (0-99) H 05/14/18 03:55 HDL Cholesterol 62 mg/dL (40-59) H 05/14/18 03:55 - Microbiology Findings Microbiology Findings: Microbiology, Last 48 Hours 05/14/18 14:40 Legionella Antigen - Final Urine,Clean Catch Streptococcus pneumoniae Antigen (M - Final - Clinical Findings Intake & Output: Intake & Output 05/14/18 05/14/18 05/15/18 15:59 23:59 07:59 Intake Total 1120 / 1120 170 / 170 1500 / 1500 Output Total 1200 / 1200 Balance 1120 / 1120 -1030 / -1030 1500 / 1500 Weight 81.2 kg - Attending Attestation I examined this patient and my medical decision-making was reviewed with the Resident Physician. I agree with the documented findings, disposition and treatment plan as described except to the extent set forth below. We independently had [id number] contact with the patient Patient seen and examined at bedside Labs, radiology, chart personally reviewed. Impression: Pneumonia COPD exacerbation Tobacco abuse Shoulder pain Recs: -Recommend ceftriaxone to complete 7 day course as outpatient this is complicated by and shows/Rhino virus with likely bacterial coinfection -Would continue IV steroids today with plan to transition to oral glucocorticoids 40 mg of prednisone to taper over 2 weeks follow-up outpatient pulmonary clinic in 1-2 weeks at discharge -Tobacco cessation counseling given -CT scan without evidence of acute process recommend either inpatient or outpatient follow-up with orthopedics for further evaluation Pulmonary will sign off please call with any questions thank you for this consultation
[2018-05-15] MEDS: OXcarbazepine 150 MG TABLET PO SCH (08:36)
[2018-05-15] MEDS: Aspirin 325 MG TABLET PO SCH (08:36)
[2018-05-15] MEDS: Venlafaxine XR (24 HR) 75 MG CAP.ER.24H PO SCH (08:36)
[2018-05-15] MEDS: amLODIPine 5 MG TABLET PO SCH (08:36)
[2018-05-15] MEDS: MethylPREDNISolone 40 MG/ML VIAL IVP SCH (08:37)
[2018-05-15] MEDS: Umeclidinium Brm/Vilanterol Tr [Anoro Ellipta 62.5-2 IH SCH (08:37)
[2018-05-15 08:42] LABS: Adenovirus Not Detected (Not Detect); Bordetella Pertussis Not Detected (Not Detect); Chlamydophila pneumoniae Not Detected (Not Detect); Coronavirus 229E Not Detected (Not Detect); Coronavirus HKU1 Not Detected (Not Detect); Coronavirus NL63 Not Detected (Not Detect); Coronavirus OC43 Not Detected (Not Detect); Human Metapneumovirus Not Detected (Not Detect); Human Rhinovirus/Enterovirus DETECTED (Not Detect); Influenza A Subtype 2009 H1 Not Detected (Not Detect); Influenza A Untypeable Not Detected (Not Detect); Influenza B Not Detected (Not Detect); Mycoplasma pneumoniae Not Detected (Not Detect); Parainfluenza Virus 1 Not Detected (Not Detect); Parainfluenza Virus 2 Not Detected (Not Detect); Parainfluenza Virus 3 Not Detected (Not Detect); Parainfluenza Virus 4 Not Detected (Not Detect); Respiratory Syncytial Virus Not Detected (Not Detect)
[2018-05-15] MEDS ORDERED: cefTRIAXone 2,000 MG in 0.9 % Sodium Chloride Mini Bag 100 ML IVPB SCH (09:00)
[2018-05-15 10:14] LABS: Basophils % 0.1 %; Eosinophils % 0.1 %; Hematocrit 40.6 % (35.3-44.9); Hemoglobin 13.2 g/dL (11.5-15.4); Immature Granulocytes % 0.9 % (0-4); Lymphocytes # 1.3 K/mcL (0.6-4.6); Lymphocytes % 7.2 %; Mean Corpuscular HGB Conc 32.5 g/dL (31.6-35.5); Mean Corpuscular Hemoglobin 31.2 pg (28.0-33.3); Mean Platelet Volume 9.3 fL (9.4-12.4); Monocytes # 0.7 K/mcL (0.0-1.3); Monocytes % 3.9 %; Neutrophils # 15.1 K/mcL (1.6-8.9); Platelet Count 344 K/mcL (140-400); Red Blood Count 4.23 M/mcL (3.82-4.97); Red Cell Distribution Width 14.8 % (11.5-14.5); Segmented Neutrophils % 87.8 %
[2018-05-15 10:43] LABS: BUN/Creatinine Ratio 21 (6-26); Blood Urea Nitrogen 14 mg/dL (6-20); Calcium 9.6 mg/dL (8.6-10.3); Carbon Dioxide 28 mEq/L (23-29); Chloride 99 mEq/L (98-107); Glucose 217 mg/dL (70-105); Osmolality,Calculated 291 (280-300); Potassium 3.8 mEq/L (3.5-5.1); Sodium 137 mEq/L (136-145); eGFR For Non-African Americans > 60 (> 60)
[2018-05-15 14:46] VITALS: BP 173/79
--- NOTE | 2018-05-15 16:15 | Discharge Summary ---
- NOTES TO OUTPATIENT PROVIDER Notes to Outpatient Provider: Robert CAP. CT chest imaging reveals upper lobe predominant ill-defined centrilobular. Please ensure follow-up with pulmonology. Patient to follow-up within 2 weeks of DC. Being sent home with 7 day course of Omnicef Orders not resulted at time of discharge: Pending orders 05/14/18 09:15 Culture,Sputum with Gram Stain [RM] Routine 05/16/18 04:00 Basic Metabolic Panel AM 0400 Complete Blood Count [HEME] AM 0400 05/17/18 04:00 Basic Metabolic Panel AM 0400 Complete Blood Count [HEME] AM 0400 05/18/18 04:00 Basic Metabolic Panel AM 0400 Complete Blood Count [HEME] AM 0400 Date of Encounter: 05/15/18 Time of Encounter: 16:12 - Discharge Diagnosis (1) Community acquired pneumonia Priority: Primary Status: Acute Assessment and Plan: Presented from pulmonology office Reporting a one-month history of shortness of breath and a productive cough Producing brown/isaac sputum 1 month Chest x-ray shows new airspace disease in the lingula suggestive of pneumonia Continue to treat with aerosols, IV steroids and Levaquin Send sputum for cultures Check urine antigens for strep pneumo and legionella Blood cultures pending Consult to pulmonology, thank you and I appreciate your recommendations 05/15--stable overnight, continuing to require supplemental O2 at 2 L nasal cannula. Continuing to have dyspnea with exertion and productive cough. Lungs are clear/diminished throughout with expiratory wheezing, prolonged expiratory phase. Continue aerosols, IV steroids and Levaquin. Discussed IV antibiotics which upset the patient as she reports a sensitivity to Levaquin however this is not a true allergy. Otherwise patient in agreement with plan of care. She is worried that the Levaquin will cause Clostridium difficile. We will add probiotics. She has remained afebrile and does not appear to be toxic. Qualifiers: Laterality: left Lung location: upper lobe of lung Qualified Code(s): J18.1 - Lobar pneumonia, unspecified organism (2) Acute exacerbation of chronic obstructive airways disease Priority: Secondary Status: Acute (3) CAD (coronary artery disease) Priority: Secondary Status: Acute Qualifiers: Coronary Disease-Associated Artery/Lesion type: [place] artery [place] vs. transplanted heart: [place] heart Associated angina: without angina Qualified Code(s): I25.10 - Atherosclerotic heart disease of [place] coronary artery without angina pectoris (4) HTN (hypertension) Priority: Secondary Status: Chronic Qualifiers: Hypertension type: essential hypertension Qualified Code(s): I10 - Essential (primary) hypertension (5) Hyperlipidemia Priority: Secondary Status: Chronic Qualifiers: Hyperlipidemia type: pure hypercholesterolemia Qualified Code(s): E78.00 - Pure hypercholesterolemia, unspecified; E78.0 - Pure hypercholesterolemia (6) Rectal cancer Priority: Secondary Status: Acute (7) Lung metastases Priority: Secondary Status: Chronic Qualifiers: Laterality: unspecified laterality Qualified Code(s): C78.00 - Secondary malignant neoplasm of unspecified lung (8) Smoker unmotivated to quit Priority: Secondary Status: Chronic Hospital course: Ms. Joy is a 57 year old female Presented with respiratory distress. Community-acquired pneumonia and acute exacerbation of COPD due to viral illness. Requiring baseline 2 L nasal cannula for oxygen support. CT chest showed bronchial wall thickening and ill- defined centrilobular nodules with evidence of bronchiolitis. Uncomplicated hospital course, patient is resting comfortably on room air able to ambulate without difficulty on room air. We will be discharged with long steroid taper and 7 day course of Omnicef. Reported to return to the ED should she develop fever, chills, fatigue, malaise and dyspnea. Patient verbalized understanding denies any further questions. She is to follow-up with PCP with home discharge and follow-up with pulmonology in 1-2 weeks. She has been strongly encouraged to quit smoking. Discharge discussed with: patient, family, nurse, valuation consultant Time spent discussing smoking cessation with patient: 3 to 10 minutes - Time Spent with Patient Total time spent providing and/or coordinating discharge services: Less than 30 minutes - Discharge Medications Prescriptions: Cefdinir [Omnicef] 300 mg PO BID 7 Days #14 capsule predniSONE [PredniSONE] See Taper PO DAILY 9 Days #18 tablet Home Medications: Aspirin 325 mg PO DAILY 05/16/16 [History] Atorvastatin Calcium [Lipitor] 20 mg PO DAILY 05/16/16 [History] Metoprolol [Lopressor] 50 mg PO BID 05/16/16 [History] amLODIPine [Norvasc] 10 mg PO DAILY 05/16/16 [History] Albuterol Sulfate [Albuterol Inhaler] 1 puff IH Q4HR 30 Days inhaler 11/23/16 [ Rx] Ondansetron ODT [Zofran ODT] 4 mg SL Q8HR #60 tab.rapdis 04/15/17 [Rx] Oxybutynin Chloride [Ditropan Xl] 10 mg PO DAILY #30 tab.er.24 05/20/17 [Rx] Albuterol Neb [Proventil Neb] 2.5 mg IH TID 06/17/17 [History] Quetiapine Fumarate [Seroquel] 100 mg PO HS 02/24/18 [History] Levothyroxine Sodium [Levo-T] 75 mcg PO DAILY 05/13/18 [History] Mirtazapine [Remeron] 15 mg PO HS 05/13/18 [History] OXcarbazepine [Oxcarbazepine] 300 mg PO BID 05/13/18 [History] SUMAtriptan succinate [Imitrex] 50 mg PO DAILY PRN 05/13/18 [History] Umeclidinium Brm/Vilanterol Tr [Anoro Ellipta 62.5-25 Mcg INH] 1 puff IH DAILY 05/13/18 [History] Venlafaxine XR (24 HR) [Effexor XR] 225 mg PO DAILY 05/13/18 [History] Cefdinir [Omnicef] 300 mg PO BID 7 Days #14 capsule 05/15/18 [Rx] predniSONE [PredniSONE] See Taper PO DAILY 9 Days #18 tablet 05/15/18 [Rx] Allergies/Adverse Reactions: 3 Allergy/AdvReac Type Severity Reaction Status Date / Time levofloxacin [From Levaquin] Allergy Mild Hives Verified 05/13/18 14:54 diphenhydramine Allergy Hives Verified 05/13/18 14:54 [From Benadryl] egg Allergy Hives Verified 05/13/18 14:54 guaifenesin [From Robitussin] Allergy Hives Verified 05/13/18 14:54 latex Allergy Rash Verified 05/13/18 14:54 Penicillins Allergy Difficulty Verified 05/13/18 14:54 Breathing Tetracycline Allergy Difficulty Verified 05/13/18 14:54 Breathing acetic acid [From VoSol-HC] AdvReac Redness of Verified 05/13/18 14:54 Skin aloe vera AdvReac Redness of Verified 05/13/18 14:54 Skin bacitracin AdvReac Redness of Verified 05/13/18 14:54 [From Neosporin Skin ([id number])] capsaicin AdvReac Redness of Verified 05/13/18 14:54 Skin hydrocortisone AdvReac Redness of Verified 05/13/18 14:54 [From VoSol-HC] Skin Neomycin AdvReac Redness of Verified 05/13/18 14:54 [From Neosporin Skin ([id number])] polymyxin B AdvReac Redness of Verified 05/13/18 14:54 [From Neosporin Skin ([id number])] silver sulfadiazine AdvReac Redness of Verified 05/13/18 14:54 [From Silvadene] Skin Date of admission: 05/13/18 17:05 Primary care physician: Baltazar Chirinos DO Consults: 05/14/18 09:10 Consult to Pulmonology [CONS] Routine Consulting Provider: [facility] Reason for Consult: Complicated pulmonary hx including metastatic lung cancer ; follow with pulmonology. Was sent to [facility] from [facility]. Found to have PNA. Additionally was found to by hyponatremic. Given cancer hx requesting pulmonology consult for further evaluation Time Notified: 09:11 Call Completed: Yes Discharging clinician: Emerson Robertson Anticipated date of discharge: 05/15/18 - Constitutional Vitals: Temp Pulse Resp BP Pulse Ox 97.9 F 83 17 173/79 94 05/15/18 14:45 05/15/18 14:45 05/15/18 14:45 05/15/18 14:45 05/15/18 14:45 General appearance: Present: mild distress Exam: PHYSICAL EXAMINATION: GENERAL: The patient is an ill-appearing female with mild respiratory distress. She is alert and oriented x3. HEENT: Head is normocephalic and atraumatic. Extraocular muscles are intact. Pupils are equal, round, and reactive to light and accommodation. NECK: Supple. No carotid bruits. No lymphadenopathy or thyromegaly. LUNGS: Decreased breath sounds, prolonged expiratory phase and expiratory wheezing HEART: Regular rate and rhythm, S1, S2 without murmur. ABDOMEN: Soft, nontender, and nondistended. Positive bowel sounds. No hepatosplenomegaly was noted. EXTREMITIES: Without any cyanosis, clubbing, rash, lesions or edema. SKIN: No ulceration or induration present. - Patient Status Disposition: Home Health Service Condition: Good Functional capacity at discharge: independent ambulation Overall status at discharge: patient is progressing back to baseline - Discharge Instructions Instructions: Chronic Obstructive Pulmonary Disease (DC), Pneumonia (DC) Follow Up With: Baltazar Chirinos DO [Primary Care Provider] - 05/28/18 2:10 pm - Diet and Activity Activity: increase activity as tolerated, resume usual activities as tolerated Diet: diabetic diet, low fat, low cholesterol, low salt diet
--- NOTE | 2018-05-15 16:21 | Physician Discharge Referral ---
Home Health/Hosp Referral Info Transfer to: Home Health Attending Provider: [facility] Provider in Charge Post Discharge: PCP - Diagnosis (1) Community acquired pneumonia Priority: Primary Status: Acute (2) Acute exacerbation of chronic obstructive airways disease Priority: Secondary Status: Acute (3) CAD (coronary artery disease) Priority: Secondary Status: Acute (4) HTN (hypertension) Priority: Secondary Status: Chronic (5) Hyperlipidemia Priority: Secondary Status: Chronic (6) Rectal cancer Priority: Secondary Status: Acute (7) Lung metastases Status: Chronic (8) Smoker unmotivated to quit Priority: Secondary Status: Chronic - Respiratory Orders Smoking Cessation: Smoking cessation has been advised. For more information, call the [place] Tobacco Quit Line at 4-788-HOJA-NOW. - Diet/Nutrition Diet/Nutrition Orders: No Added Salt (AVRIL), Cardiac - Activity Activity Orders: Ambulate - Services Needed Following services are medically necessary services: Nursing, Home Health Aide - Transfer Medications Prescriptions: Cefdinir [Omnicef] 300 mg PO BID 7 Days #14 capsule predniSONE [PredniSONE] See Taper PO DAILY 9 Days #18 tablet Home Medications: Aspirin 325 mg PO DAILY 05/16/16 [History] Atorvastatin Calcium [Lipitor] 20 mg PO DAILY 05/16/16 [History] Metoprolol [Lopressor] 50 mg PO BID 05/16/16 [History] amLODIPine [Norvasc] 10 mg PO DAILY 05/16/16 [History] Albuterol Sulfate [Albuterol Inhaler] 1 puff IH Q4HR 30 Days inhaler 07/03/16 [ Rx] Ondansetron ODT [Zofran ODT] 4 mg SL Q8HR #60 tab.rapdis 04/15/17 [Rx] Oxybutynin Chloride [Ditropan Xl] 10 mg PO DAILY #30 tab.er.24 05/20/17 [Rx] Albuterol Neb [Proventil Neb] 2.5 mg IH TID 06/17/17 [History] Quetiapine Fumarate [Seroquel] 100 mg PO HS 02/24/18 [History] Levothyroxine Sodium [Levo-T] 75 mcg PO DAILY 05/13/18 [History] Mirtazapine [Remeron] 15 mg PO HS 05/13/18 [History] OXcarbazepine [Oxcarbazepine] 300 mg PO BID 05/13/18 [History] SUMAtriptan succinate [Imitrex] 50 mg PO DAILY PRN 05/13/18 [History] Umeclidinium Brm/Vilanterol Tr [Anoro Ellipta 62.5-25 Mcg INH] 1 puff IH DAILY 05/13/18 [History] Venlafaxine XR (24 HR) [Effexor XR] 225 mg PO DAILY 05/13/18 [History] Cefdinir [Omnicef] 300 mg PO BID 7 Days #14 capsule 05/15/18 [Rx] predniSONE [PredniSONE] See Taper PO DAILY 9 Days #18 tablet 05/15/18 [Rx] Allergies/Adverse Reactions: 3 Allergy/AdvReac Type Severity Reaction Status Date / Time levofloxacin [From Levaquin] Allergy Mild Hives Verified 05/13/18 14:54 diphenhydramine Allergy Hives Verified 05/13/18 14:54 [From Benadryl] egg Allergy Hives Verified 05/13/18 14:54 guaifenesin [From Robitussin] Allergy Hives Verified 05/13/18 14:54 latex Allergy Rash Verified 05/13/18 14:54 Penicillins Allergy Difficulty Verified 05/13/18 14:54 Breathing Tetracycline Allergy Difficulty Verified 05/13/18 14:54 Breathing acetic acid [From VoSol-HC] AdvReac Redness of Verified 05/13/18 14:54 Skin aloe vera AdvReac Redness of Verified 05/13/18 14:54 Skin bacitracin AdvReac Redness of Verified 05/13/18 14:54 [From Neosporin Skin ([id number])] capsaicin AdvReac Redness of Verified 05/13/18 14:54 Skin hydrocortisone AdvReac Redness of Verified 05/13/18 14:54 [From VoSol-HC] Skin Neomycin AdvReac Redness of Verified 05/13/18 14:54 [From Neosporin Skin ([id number])] polymyxin B AdvReac Redness of Verified 05/13/18 14:54 [From Neosporin Skin ([id number])] silver sulfadiazine AdvReac Redness of Verified 05/13/18 14:54 [From Silvadene] Skin Certification: Further, I certify that my clinical findings support that this patient is homebound (i.e. absences from home require considerable and taxing effort and are for medical reasons or religion services or infrequently or short duration when for other reasons) because: Homebound Reason: Patient requires assistance of a person or device to safely leave home Attestation: My signature below is to certify that this patient is under my care and that I, or nurse practitioner, or a physician's chemist assistant working with me, has a face-to -face encounter with this patient.
== END 2018-05-15 16:23 | disposition home health service (06) ==
LOC: 3BNU 14:39 → EMEROOARM 14:39 → 3BNU 18:45
PROVIDERS: ADMIT Internal Medicine; ATTEND Internal Medicine

== ENCOUNTER 2018-10-28 11:08 | Inpatient (IN) ==
--- NOTE | 2018-10-28 11:59 | Event Note ---
Date of Encounter: 10/28/18 Time of Encounter: 11:57 Patient being transferred from [facility] ED where she p/w SOB and wheezing. CXR unremarkable and trop undetectable. Patient was recently discharged from [facility] for COPD and pneumonia, and is still on PO steroids. ED there planned to admit but given recent admission here and worsening of symptoms despite steroids, hospitalist there preferred transfer here given availability of pulmonary consultation if needed.
[2018-10-28] MEDS ORDERED: Naloxone 0.4 MG/ML INJ IVP PRN (14:15)
[2018-10-28 15:00] LABS: Basophils % 0.1 %; Eosinophils % 0.3 %; Hematocrit 39.5 % (35.3-44.9); Immature Granulocytes % 0.8 % (0-4); Lymphocytes % 10.5 %; Mean Corpuscular HGB Conc 32.9 g/dL (31.6-35.5); Mean Corpuscular Hemoglobin 30.6 pg (28.0-33.3); Mean Corpuscular Volume 92.9 fL (83.0-100.0); Mean Platelet Volume 9.1 fL (9.4-12.4); Monocytes # 0.7 K/mcL (0.0-1.3); Monocytes % 7.3 %; Neutrophils # 7.5 K/mcL (1.6-8.9); Platelet Count 345 K/mcL (140-400); Red Blood Count 4.25 M/mcL (3.82-4.97); Red Cell Distribution Width 16.4 % (11.5-14.5)
[2018-10-28 15:18] LABS: Alanine Aminotransferase 20 Units/L (7-52); Albumin 4.2 g/dL (3.5-5.7); Albumin/Globulin Ratio 1.6 (1.1-2.2); Alkaline Phosphatase 108 Units/L (34-104); Aspartate Amino Transferase 12 Units/L (13-39); BUN/Creatinine Ratio 17 (6-26); Bilirubin,Total 0.4 mg/dL (0.3-1.0); Blood Urea Nitrogen 11 mg/dL (6-20); Calcium 9.7 mg/dL (8.6-10.3); Carbon Dioxide 28 mEq/L (23-29); Chloride 99 mEq/L (98-107); Globulin 2.7 g/dL (2.4-3.5); Glucose 112 mg/dL (70-105); Magnesium 2.1 mg/dL (1.6-2.6); Osmolality,Calculated 282 (280-300); Potassium 3.8 mEq/L (3.5-5.1); Sodium 136 mEq/L (136-145); Total Protein 6.9 g/dL (6.4-8.9); Troponin I < 0.03 ng/mL (< 0.04); eGFR For Non-African Americans > 60 (> 60)
[2018-10-28] MEDS: *HR* Heparin 5,000 UNIT/ML VIAL SQ SCH (18:51)
[2018-10-28] MEDS: MethylPREDNISolone 40 MG/ML VIAL IVP SCH (18:53)
[2018-10-28] MEDS: tiZANidine 4 MG TABLET PO PRN (19:04)
--- NOTE | 2018-10-28 19:38 | Internal Med History&Physical ---
<Doroteo Jarrett Amish - Last Filed: 10/28/18 21:43> Date of Encounter: 10/28/18 Time of Encounter: 06:00 Internal Medicine - H&P: HPI Chief complaint: Dyspnea and Shortness of Breath Admitted From: Hospital to Hospital Transfer Plans for Post Hospital Care: Home History of present illness: is a 58yo woman with history of COPD, CAD s/p stents, HTN, Lung ca, HLD and hypothyroidism who presents to [facility] from [facility] due to concerns of acute shortness of breath. The patient was recently discharged from [facility] on 10/22/18 for a hospital stay at which time she was being treated primarily for a COPD exacerbation and community acquired pneumonia. The patient states that when she left the hospital she was initially feeling better, however she has developed progressively increasing shortness of breathing in the time since, particularly in the last three days. She states that the shortness of breath is particularly notable with exertion, and relieved with rest, and that it generally lasts about 10 minutes however it has increased in duration with each subsequent episode. In association with these symptoms, the patient admits to a stabbing chest pain located in the center of her chest with radiation to her back, as well as diaphoresis, headache and hypertension. She states that she tried to sleep the symptoms off last night, however this morning upon waking she found that she was excessively dyspneic and was unable to walk to the bathroom without distress. She called the rescue squad at that time and was transported to [facility] ED, where she had a CXR that was unremarkable, and an EKG that demonstrated sinus tachycardia with occasional PVCs and nonspecific ST-T wave changes. At that time, she was transferred to [facility] for further workup and management. Significantly, at the time of discharge, the patient prescribed a course of azithromycin, omnicef and prednisone for her COPD exacerbation and community acquired pneumonia, however she notes that, due to an administrative error leading to the prescriptions being sent to the [facility], she did not pick the prescriptions up until five days after discharge. As a result, the patient did not begin taking these medications until 10/27/18. She does mention that she had some prednisone at home left over from a previous prescription which she continued to take, however the dose of this is unclear at this time. Past Med Surg Social Fam HX - Past Medical History Medical history: cancer, COPD, hyperlipidemia, hypertension, myocardial infarction, thyroid disease Additional medical history: rectal/lung ca Psychiatric history: anxiety, bipolar, depression - Past Surgical History Surgical History: angioplasty/stent - Social History Smoking Status: Current every day smoker Smokeless Tobacco Status: No Alcohol use: none Drug use: none - Family History Father Living Status: Mother Living Status: Hx Family Cardiac Disorders: Yes (CHF) Internal Medicine - H&P: Meds RX: Aspirin 325 mg PO DAILY 05/16/16 [History] RX: Atorvastatin Calcium [Lipitor] 20 mg PO DAILY 05/16/16 [History] RX: amLODIPine [Norvasc] 10 mg PO DAILY 05/16/16 [History] RX: Albuterol Sulfate [Albuterol Inhaler] 1 puff IH Q4HR 30 Days inhaler 07/03/16 [Rx] RX: Albuterol Neb [Proventil Neb] 2.5 mg IH TID 06/17/17 [History] RX: Quetiapine Fumarate [Seroquel] 200 mg PO HS 02/24/18 [History] RX: Levothyroxine Sodium [Levo-T] 75 mcg PO DAILY 05/13/18 [History] RX: Mirtazapine [Remeron] 15 mg PO HS 05/13/18 [History] RX: Umeclidinium Brm/Vilanterol Tr [Anoro Ellipta 62.5-25 Mcg INH] 1 puff IH DAILY 05/13/18 [History] RX: Venlafaxine XR (24 HR) [Effexor XR] 75 mg PO DAILY 05/13/18 [History] RX: Famotidine [Pepcid] 20 mg PO BID PRN 10/18/18 [History] RX: Fluticasone Furoate [Arnuity Ellipta] 100 mcg IH DAILY 10/18/18 [History] RX: Oxybutynin Chloride [Ditropan Xl] 15 mg PO DAILY 10/18/18 [History] RX: Tizanidine HCl [Zanaflex] 4 mg PO BID PRN 10/18/18 [History] RX: Metoprolol Succinate [Toprol Xl] 50 mg PO BID 10/19/18 [History] RX: OXcarbazepine [Oxcarbazepine] 600 mg PO TID 10/19/18 [History] RX: Roflumilast [Daliresp] 500 mcg PO DAILY 10/19/18 [History] RX: Venlafaxine XR (24 HR) [Effexor Xr] 150 mg PO DAILY 10/19/18 [History] predniSONE [PredniSONE] See Taper PO TAPER 12 Days #30 tablet 10/22/18 [Rx] Allergy/AdvReac Type Severity Reaction Status Date / Time diphenhydramine Allergy Hives Verified 10/28/18 17:43 [From Benadryl] egg Allergy Hives Verified 10/28/18 17:43 latex Allergy Rash Verified 10/28/18 17:43 Penicillins Allergy Difficulty Verified 10/28/18 17:43 Breathing tetracycline [Tetracycline] Allergy Difficulty Verified 10/28/18 17:43 Breathing acetic acid [From VoSol-HC] AdvReac Redness of Verified 10/28/18 17:43 Skin aloe vera AdvReac Redness of Verified 10/28/18 17:43 Skin bacitracin AdvReac Redness of Verified 10/28/18 17:43 [From Neosporin Skin ([id number])] capsaicin AdvReac Redness of Verified 10/28/18 17:43 Skin hydrocortisone AdvReac Redness of Verified 10/28/18 17:43 [From VoSol-HC] Skin Neomycin AdvReac Redness of Verified 10/28/18 17:43 [From Neosporin Skin ([id number])] polymyxin B AdvReac Redness of Verified 10/28/18 17:43 [From Neosporin Skin ([id number])] silver sulfadiazine AdvReac Redness of Verified 10/28/18 17:43 [From Silvadene] Skin All Systems PM: A 10-system review of systems was performed and is negative for pertinent findi ngs except as documented above in the HPI. - Constitutional Constitutional: excessive sweating, fatigue, fever(s), lethargy, weakness - Cardiovascular Cardiovascular ROS IM: chest pain, diaphoresis, dyspnea, dyspnea on exertion, orthopnea, syncope - Respiratory Respiratory: cough, dyspnea, dyspnea on exertion, wheezing, pain with cough - Gastrointestinal Gastrointestinal: no abdominal pain, no nausea, no vomiting - Musculoskeletal Musculoskeletal ROS IM: back pain - Integumentary Integumentary IM: no erythema, no new lesions, no rash - Neurological Neurological ROS: dizziness, headache(s), weakness - Psychiatric Psychiatric: anxiety, irritability, mood swings, panic attacks - Endocrine Endocrine IM: excessive sweating, fatigue - Allergic/Immunologic Allergic/Immunologic: seasonal rhinorrhea, wheezing - Constitutional Vitals: Temp Pulse Resp BP Pulse Ox 97.8 F 93 21 131/78 96 10/28/18 16:12 10/28/18 16:12 10/28/18 16:12 10/28/18 16:12 10/28/18 16:12 General appearance: Present: cooperative, A&O X 3, answers questions appropriately Exam: Moderate Distress - Head Head exam: Present: atraumatic, normal inspection, normocephalic - Eye Eye exam: Present: normal appearance, PERRL Pupils: Present: PERRL. Absent: unequal - Respiratory Respiratory exam: Present: accessory muscle use, chest wall tenderness, respiratory distress, rhonchi, wheezes, tachypnea - Cardiovascular Cardiovascular exam: Present: +S1, +S2, tachycardia. Absent: diastolic murmur, JVD, systolic murmur - GI/Abdominal GI/Abdominal exam: Present: normal bowel sounds, soft, no peritoneal signs. Absent: tenderness - Back Exam Back exam: Present: full ROM, paraspinal tenderness (Slight) - Neurological Exam Neurological exam: Present: alert, oriented X3. Absent: facial droop, speech deficit - Psychiatric Psychiatric exam: Present: anxious. Absent: agitated, depressed - Skin Skin exam: Present: dry, intact, normal color, warm Internal Med - H&P Results - Labs CBC & Chem 7: 10/28/18 14:42 10/28/18 14:42 Labs: Short CBC 10/28/18 Range/Units 14:42 WBC 9.2 (4.3-11.1) K/mcL Hgb 13.0 (11.5-15.4) g/dL Hct 39.5 (35.3-44.9) % Plt Count 345 (140-400) K/mcL Neutrophils # 7.5 (1.6-8.9) K/mcL BMP 10/28/18 14:42 Sodium 136 Potassium 3.8 Chloride 99 Carbon Dioxide 28 BUN 11 Creatinine 0.63 Glucose 112 H Calcium 9.7 Cardiac Enzymes 10/28/18 Range/Units 14:42 Troponin I < 0.03 (< 0.04) ng/mL Liver Function 10/28/18 Range/Units 14:42 Total Bilirubin 0.4 (0.3-1.0) mg/dL AST 12 L (13-39) Units/L ALT 20 (7-52) Units/L Alkaline Phosphatase 108 H (34-104) Units/L Albumin 4.2 (3.5-5.7) g/dL - EKG Data EKG shows normal: sinus rhythm, axis (Right), ST-T waves (Nonspecific) Rate: tachycardia - EKG Data Prior EKG available for review: yes - Assessment and Plan (1) Acute respiratory failure with hypoxia Current Visit: No Status: Acute Assessment and plan: Acute respiratory failure with hypoxia secondary to acute COPD exacerbation, and less likely superimposed ACS or pneumonia. Normal heart rate, tachypenic, O2 saturation at 93% on 4L Patient had a recent history of pneumonia Start Bactrim Ds 1 tab PO BID ASHWIN, this is the 1st day a 5 day course Considering ACS, troponin less than <0.03, continue to trend troponin and obtain an EKG tomorrow For acute COPD exacerbation, start Start Duoneb 3 ml IH QIDRSCH, Start Methylp rednizolone 60 mg IVP Q8HR ASHWIN, Start Bactrim Ds 1 tab PO BID ASHWIN, this is the 1st day a 5 day course. Start O2, Should be titrated down to 3L to keep o2 between 88-92% Continue to monitor vital signs Of note BNP were 114 however this is below her recent BNP and she does not fit the clinical picture of CHF. (2) Acute exacerbation of chronic obstructive airways disease Current Visit: Yes Status: Acute Assessment and plan: Patient has COPD exacerbation Treat acute COPD exacerbation as above (3) HTN (hypertension) Current Visit: No Status: Chronic Assessment and plan: Monitor blood pressure. Resume home medications Qualifiers: Hypertension type: essential hypertension Qualified Code(s): I10 - Essential (primary) hypertension (4) CAD (coronary artery disease) Current Visit: No Status: Chronic Assessment and plan: Continue home medications. Trend troponins. Telemetry monitoring Qualifiers: Coronary Disease-Associated Artery/Lesion type: [place] artery [place] vs. transplanted heart: [place] heart Associated angina: without angina Qualified Code(s): I25.10 - Atherosclerotic heart disease of [place] coronary artery without angina pectoris (5) Hypothyroid Current Visit: No Status: Chronic Assessment and plan: Continue home medication Qualifiers: Qualified Code(s): E03.9 - Hypothyroidism, unspecified (6) Depression Current Visit: No Status: Chronic Assessment and plan: Continue home medications Qualifiers: Qualified Code(s): F32.9 - Major depressive disorder, single episode, unspecified (7) DVT prophylaxis Current Visit: Yes Status: Acute Assessment and plan: Start Heparin 5,000 unit SQ Q12HCO - Time Spent With Patient Total time spent is greater than 50% in coordination of care (as documented) at patient's floor/unit and/or counseling patient: 25 - 35 minutes <Ned Cruz - Last Filed: 10/30/18 14:40> Date of Encounter: 10/30/18 Internal Medicine - H&P: HPI History of present illness: Ms. Joy is a 58 year old female All Systems PM: A 10-system review of systems was performed and is negative for pertinent findings except as documented above in the HPI. - Constitutional Vitals: Temp Pulse Resp BP Pulse Ox 97.5 F L 85 18 149/83 93 10/30/18 11:45 10/30/18 11:45 10/30/18 11:45 10/30/18 11:45 10/30/18 10:58 Internal Med - H&P Results - Labs CBC & Chem 7: 10/28/18 14:42 10/28/18 14:42 - Time Spent With Patient Total time spent is greater than 50% in coordination of care (as documented) at patient's floor/unit and/or counseling patient: - Attending Attestation The history, physical exam, and medical decision making was performed by the medical student either while I was physically present and actively involved or I personally re-performed the exam and medical decision making. I have verified the accuracy of the medical student's documentation with regards to the history, physical exam findings, and medical decision making.
[2018-10-28] MEDS: Sulfamethoxazole/Trimeth DS 1 EACH TABLET PO SCH (20:22)
[2018-10-28] MEDS: Mirtazapine 15 MG TABLET PO SCH (20:23)
[2018-10-28] MEDS: Metoprolol XL (24 HR) Succ 50 MG TAB.ER.24H PO SCH (20:23)
[2018-10-28] MEDS: OXcarbazepine 150 MG TABLET PO SCH (20:23)
[2018-10-28] MEDS: Ipratropium/Albuterol Neb 3 ML IH SCH (22:59)
[2018-10-29] MEDS: MethylPREDNISolone 40 MG/ML VIAL IVP SCH ×3 (00:49→16:12)
[2018-10-29] MEDS: Ipratropium/Albuterol Neb 3 ML IH SCH ×4 (04:16→22:50)
[2018-10-29] MEDS: *HR* Heparin 5,000 UNIT/ML VIAL SQ SCH ×2 (06:16→17:19)
[2018-10-29] MEDS: tiZANidine 4 MG TABLET PO PRN (06:16)
[2018-10-29] MEDS: amLODIPine 5 MG TABLET PO SCH (08:15)
[2018-10-29] MEDS: Aspirin 325 MG TABLET PO SCH (08:15)
[2018-10-29] MEDS: Venlafaxine XR (24 HR) 75 MG CAP.ER.24H PO SCH (08:15)
[2018-10-29] MEDS: OXcarbazepine 150 MG TABLET PO SCH ×3 (08:15→21:31)
[2018-10-29] MEDS: Metoprolol XL (24 HR) Succ 50 MG TAB.ER.24H PO SCH ×2 (08:15→21:31)
[2018-10-29] MEDS: Sulfamethoxazole/Trimeth DS 1 EACH TABLET PO SCH ×2 (08:15→21:31)
[2018-10-29] MEDS ORDERED: Venlafaxine XR (24 HR) 150 MG CAP.ER.24H PO SCH (09:00)
[2018-10-29] MEDS ORDERED: (Roflumilast [Daliresp] 500 MCG) PO SCH (09:00)
[2018-10-29] MEDS ORDERED: Venlafaxine XR (24 HR) 75 MG CAP.ER.24H PO SCH (09:00)
[2018-10-29] MEDS: traMADol 50 MG TABLET PO PRN ×2 (10:23→17:19)
--- NOTE | 2018-10-29 11:00 | Internal Med Progress Note ---
Hospitalist Progress Note - Encounter Date of Encounter: 10/29/18 Time of Encounter: 09:00 - Subjective Interval History: Today the patient appeared to be doing much better. She was sitting upright in bed and was able to speak without having to take breaks to catch her breath. She admitted to having a worse cough that produces white phlegm, she states that she experienced sweats and a fever last night but believes that was do to the excessive coughing. She denies headache, worsening chest pain, palpitations, edema. She denied hemoptysis or worsening wheezing. She denies GI or complains. Patient did not express any concerns nor did she have any questions. - Exam Vitals: Temp Pulse Resp BP Pulse Ox 98.2 F 93 18 120/76 89 10/29/18 07:06 10/29/18 07:06 10/29/18 07:06 10/29/18 07:06 10/29/18 08:17 Exam: GEN: AA&Ox3, interactive, well appearing Cardiac: RRR, no rubs, no murmur, Normal S1/S2 Lungs: B/l Expiratory wheezing, right sided rhonchi, MSK: Left side ribs 4-8 tender to palpation, paravertebral tightness, abnormal chest wall movement, use of accessory muscles of respiration GI: Soft, non-tender, I & O 10/28/18 thru 10/28/18 23:32 Output Total 0 Balance 0 Weight 76.6 kg Output: Urine 0 - Assessment and Plan (1) Acute respiratory failure with hypoxia Current Visit: No Status: Acute Assessment and Plan: Acute respiratory failure with hypoxia secondary to acute COPD exacerbation, and less likely superimposed ACS or pneumonia. Normal heart rate, tachypenic, O2 saturation at 89% on 3L Patient had a recent history of pneumonia - Continue Bactrim Ds 1 tab PO BID ASHWIN, this is the 2nd day a 5 day course Considering ACS, troponin less than <0.03, - Continue to trend troponin and obtain an EKG tomorrow For acute COPD exacerbation, - Continue Duoneb 3 ml IH QIDRSCH, continue Methylprednizolone 60 mg IVP Q8HR ASHWIN, continue Bactrim Ds 1 tab PO BID ASHWIN, this is the 2nd day a 5 day course. Start O2, Should be titrated down to 3L to keep o2 between 88-92% Continue to monitor vital signs Of note BNP were 114 however this is below her recent BNP and she does not fit the clinical picture of CHF. (2) Acute exacerbation of chronic obstructive airways disease Current Visit: Yes Status: Acute Assessment and Plan: Patient has COPD exacerbation Treat acute COPD exacerbation as above (3) HTN (hypertension) Current Visit: No Status: Chronic Assessment and Plan: Monitor blood pressure. Resume home medications (4) CAD (coronary artery disease) Current Visit: No Status: Chronic Assessment and Plan: Continue home medications. Trend troponins (5) Hypothyroid Current Visit: No Status: Chronic Assessment and Plan: Continue home medication (6) Depression Current Visit: No Status: Chronic Assessment and Plan: Continue home medication (7) DVT prophylaxis Current Visit: Yes Status: Acute Assessment and Plan: Continue Heparin 5,000 unit SQ Q12HCO - Time Spent with Patient Total time spent is greater than 50% in coordination of care (as documented) at patient's floor/unit and/or counseling patient: Internal Medicine: Result - Labs CBC & Chem 7: 10/28/18 14:42 10/28/18 14:42 Labs: Short CBC 10/28/18 Range/Units 14:42 WBC 9.2 (4.3-11.1) K/mcL Hgb 13.0 (11.5-15.4) g/dL Hct 39.5 (35.3-44.9) % Plt Count 345 (140-400) K/mcL Neutrophils # 7.5 (1.6-8.9) K/mcL BMP 10/28/18 14:42 Sodium 136 Potassium 3.8 Chloride 99 Carbon Dioxide 28 BUN 11 Creatinine 0.63 Glucose 112 H Calcium 9.7 Cardiac Enzymes 10/28/18 10/28/18 Range/Units 14:42 20:09 Troponin I < 0.03 < 0.03 (< 0.04) ng/mL Liver Function 10/28/18 Range/Units 14:42 Total Bilirubin 0.4 (0.3-1.0) mg/dL AST 12 L (13-39) Units/L ALT 20 (7-52) Units/L Alkaline Phosphatase 108 H (34-104) Units/L Albumin 4.2 (3.5-5.7) g/dL (3) HTN (hypertension) Qualifiers: Hypertension type: essential hypertension Qualified Code(s): I10 - Essential (primary) hypertension (4) CAD (coronary artery disease) Qualifiers: Coronary Disease-Associated Artery/Lesion type: [place] artery [place] vs. transplanted heart: [place] heart Associated angina: without angina Qualified Code(s): I25.10 - Atherosclerotic heart disease of [place] coronary artery without angina pectoris (5) Hypothyroid Qualifiers: Qualified Code(s): E03.9 - Hypothyroidism, unspecified (6) Depression Qualifiers: Qualified Code(s): F32.9 - Major depressive disorder, single episode, unspecified
[2018-10-29] MEDS: Mirtazapine 15 MG TABLET PO SCH (21:31)
[2018-10-30] MEDS: Ipratropium/Albuterol Neb 3 ML IH SCH ×4 (04:21→22:02)
[2018-10-30] MEDS: traMADol 50 MG TABLET PO PRN ×4 (04:51→21:16)
[2018-10-30] MEDS: *HR* Heparin 5,000 UNIT/ML VIAL SQ SCH ×2 (06:17→17:11)
[2018-10-30] MEDS: Venlafaxine XR (24 HR) 75 MG CAP.ER.24H PO SCH (09:46)
[2018-10-30] MEDS: Aspirin 325 MG TABLET PO SCH (09:46)
[2018-10-30] MEDS: Metoprolol XL (24 HR) Succ 50 MG TAB.ER.24H PO SCH ×2 (09:47→21:15)
[2018-10-30] MEDS: amLODIPine 5 MG TABLET PO SCH (09:47)
[2018-10-30] MEDS: predniSONE 20 MG TABLET PO SCH (09:47)
[2018-10-30] MEDS: OXcarbazepine 150 MG TABLET PO SCH ×3 (09:47→21:15)
[2018-10-30] MEDS: Sulfamethoxazole/Trimeth DS 1 EACH TABLET PO SCH ×2 (09:47→21:20)
--- NOTE | 2018-10-30 15:58 | Internal Med Progress Note ---
<ParisNghia Jan - Last Filed: 10/30/18 15:46> Hospitalist Progress Note - Encounter Date of Encounter: 10/30/18 Time of Encounter: 09:00 - Subjective Interval History: Rufino states she feels much better today. She states her breathing is better and that she was able to get up and walk to the nurses station with oxygen on, h owever that is us only as far as she was able to get. We discussed that if she continues to improve she may be eligible for discharge tomorrow. - Exam Vitals: Temp Pulse Resp BP Pulse Ox 97.5 F L 85 18 149/83 93 10/30/18 11:45 10/30/18 11:45 10/30/18 11:45 10/30/18 11:45 10/30/18 10:58 Exam: GEN: AA&Ox3, interactive, well appearing Moves all extremities, no focal deficits noted EOMI, PERRLA, mucous membranes moist Cardiac: RRR, no rubs, no murmur, Normal S1/S2 Lungs: Diffuse inspiratory and expiratory wheeze, no specific rhonchi auscultated MSK: Left side ribs 4-8 tender to palpation, paravertebral tightness, abnormal chest wall movement, use of accessory muscles of respiration GI: Soft, non-tender Skin warm and dry, no bleeding or bruising noted - Assessment and Plan (1) Acute respiratory failure with hypoxia Current Visit: Yes Status: Acute Assessment and Plan: Acute respiratory failure with hypoxia secondary to acute COPD exacerbation, and less likely superimposed ACS or pneumonia. Of note BNP were 114 however this is below her recent BNP and she does not fit the clinical picture of CHF. Patient improving on regimen of supplemental oxygen, oral prednisone, bronchodilators Third day of 5 day course of Bactrim Continue current treatment plan, anticipate likely discharge tomorrow with steroid taper and 1 more day of Bactrim (2) Acute exacerbation of chronic obstructive airways disease Current Visit: Yes Status: Acute Assessment and Plan: As above (3) CAD (coronary artery disease) Current Visit: No Status: Chronic Assessment and Plan: Continue home aspirin, statin, metoprolol (4) HTN (hypertension) Current Visit: No Status: Chronic Assessment and Plan: Continue home amlodipine (5) Hypothyroid Current Visit: No Status: Chronic Assessment and Plan: Continue home levothyroxine (6) DVT prophylaxis Current Visit: Yes Status: Acute Assessment and Plan: Subcutaneous heparin - Time Spent with Patient Total time spent is greater than 50% in coordination of care (as documented) at patient's floor/unit and/or counseling patient: Internal Medicine: Result - Labs CBC & Chem 7: 10/28/18 14:42 10/28/18 14:42 Consult Discharge Plan - Plan Referrals: Baltazar Chirinos, [Primary Care Provider] - <Ned Cruz - Last Filed: 10/30/18 18:27> Hospitalist Progress Note - Encounter Date of Encounter: 10/30/18 - Exam Vitals: Temp Pulse Resp BP Pulse Ox 98.5 F 81 18 148/76 90 10/30/18 15:50 10/30/18 15:50 10/30/18 16:13 10/30/18 15:50 10/30/18 16:13 - Assessment and Plan (1) Acute exacerbation of chronic obstructive airways disease Current Visit: Yes Status: Acute (2) CAD (coronary artery disease) Current Visit: No Status: Chronic (3) HTN (hypertension) Current Visit: No Status: Chronic (4) Acute respiratory failure with hypoxia Current Visit: Yes Status: Acute (5) Hypothyroid Current Visit: No Status: Chronic (6) DVT prophylaxis Current Visit: Yes Status: Acute - Time Spent with Patient Total time spent is greater than 50% in coordination of care (as documented) at patient's floor/unit and/or counseling patient: Internal Medicine: Result - Labs CBC & Chem 7: 10/28/18 14:42 10/28/18 14:42 Labs: Urine 10/30/18 Range/Units 16:17 Urine Color Yellow (Yellow) Urine Clarity Clear (Clear) Urine pH 5.5 (5.0-8.0) pH Units Ur Specific [place] 1.014 (1.010-1.025) Urine Protein Negative (Neg-Trace) mg/dL Urine Glucose (UA) Normal (Normal) mg/dL - Attending Attestation I examined this patient and my medical decision-making was reviewed with the Resident Physician. I agree with the documented findings, disposition and treatment plan as described except to the extent set forth below. <ParisSmithaNghia C - Last Filed: 10/30/18 15:46> (3) CAD (coronary artery disease) Qualifiers: Coronary Disease-Associated Artery/Lesion type: [place] artery [place] vs. transplanted heart: [place] heart Associated angina: without angina Qualified Code(s): I25.10 - Atherosclerotic heart disease of [place] coronary artery without angina pectoris (4) HTN (hypertension) Qualifiers: Hypertension type: essential hypertension Qualified Code(s): I10 - Essential (primary) hypertension (5) Hypothyroid Qualifiers: Hypothyroidism type: unspecified Qualified Code(s): E03.9 - Hypothyroidism, unspecified <Ned Cruz - Last Filed: 10/30/18 18:27> (2) CAD (coronary artery disease) Qualifiers: Coronary Disease-Associated Artery/Lesion type: [place] artery [place] vs. transplanted heart: [place] heart Associated angina: without angina Qualified Code(s): I25.10 - Atherosclerotic heart disease of [place] coronary artery without angina pectoris (3) HTN (hypertension) Qualifiers: Hypertension type: essential hypertension Qualified Code(s): I10 - Essential (primary) hypertension (5) Hypothyroid Qualifiers: Hypothyroidism type: unspecified Qualified Code(s): E03.9 - Hypothyroidism, unspecified
[2018-10-30] MEDS: Benzonatate 100 MG CAPSULE PO PRN (15:59)
[2018-10-30 16:34] LABS: Bilirubin,Urine Negative (Negative); Blood,Urine Negative (Negative); Clarity,Urine Clear (Clear); Color,Urine Yellow (Yellow); Glucose,Urine (UA) Normal (Normal); Ketones,Urine Negative (Negative); Leukocyte Esterase,Urine Negative (Negative); Nitrite,Urine Negative (Negative); PH,Urine 5.5 pH Units (5.0-8.0); Protein,Urine Negative (Neg-Trace); Specific Gravity,Urine 1.014 (1.010-1.025); Urobilinogen,Urine Normal (Normal)
[2018-10-30] MEDS: Mirtazapine 15 MG TABLET PO SCH (21:15)
[2018-10-31] MEDS: Benzonatate 100 MG CAPSULE PO PRN (03:38)
[2018-10-31] MEDS: traMADol 50 MG TABLET PO PRN ×3 (03:38→14:44)
[2018-10-31] MEDS: Ipratropium/Albuterol Neb 3 ML IH SCH ×4 (04:05→22:37)
[2018-10-31] MEDS: *HR* Heparin 5,000 UNIT/ML VIAL SQ SCH ×2 (05:25→17:26)
--- NOTE | 2018-10-31 07:41 | Discharge Summary ---
<Vinh Banks - Last Filed: 10/31/18 07:35> - NOTES TO OUTPATIENT PROVIDER Notes to Outpatient Provider: Patient presented with reoccurence of severe COPD exacerbation due to noncompliance with medication regimen at discharge from prior admission. She will be discharged on continuing antibiotic regimen and long steroid taper with plan for close follow-up. Orders not resulted at time of discharge: Pending orders 10/29/18 06:00 EKG [ECG 12 lead ECG] [ECG] AM 0600 Date of Encounter: 10/31/18 Time of Encounter: 07:35 - Discharge Diagnosis (1) Acute respiratory failure with hypoxia Priority: Secondary Status: Acute (2) Acute exacerbation of chronic obstructive airways disease Priority: Primary Status: Acute (3) Hypothyroid Priority: Secondary Status: Chronic Qualifiers: Hypothyroidism type: unspecified Qualified Code(s): E03.9 - Hypothyroidism, unspecified (4) CAD (coronary artery disease) Priority: Secondary Status: Chronic Qualifiers: Coronary Disease-Associated Artery/Lesion type: [place] artery [place] vs. transplanted heart: [place] heart Associated angina: without angina Qualified Code(s): I25.10 - Atherosclerotic heart disease of [place] coronary artery without angina pectoris (5) HTN (hypertension) Priority: Secondary Status: Chronic Qualifiers: Hypertension type: essential hypertension Qualified Code(s): I10 - Essential (primary) hypertension Hospital course: Ms. Joy is a 58 year old female with history of COPD, CAD status post stents, hypertension, lung cancer, hyperlipidemia and hypothyroidism who presented to [facility] from [facility] due to concerns for acute shortness of breath. The patient was recently discharged from [facility] on 10/22/18 her hospital stay at which time she is being treated for primarily a COPD exacerbation and community-acquired pneumonia, however upon discharge she did not continue taking her antibiotics and prednisone because the medications were sent to a pharmacy she was not familiar with and did not know where they were sent. Initially recovered well, however she quickly went back into a COPD exacerbation presented to the hospital for repeat treatment. While in the hospital the patient did demonstrate significant airway disease with substantial wheezing requiring addition of high-dose steroids and antibiotic therapy, however she did continue to improve over the course of 3 days. Her respiratory status became stable and the patient did become ready for discharge back to a home regimen of oral antibiotics with a long steroid taper. The patient will require close outpatient follow-up to prevent readmission although she remains high risk for readmission considering her previous poor compliance and environmental exposures. We have reviewed her plan extensively and the patient agrees to follow that. She does say that she has adequate support at home and feels comfortable discharging at this time. Discharge discussed with: patient, nurse, social work, case management - Time Spent with Patient Total time spent providing and/or coordinating discharge services: Time spent: Greater than 30 minutes - Discharge Medications Prescriptions: New RX: Benzonatate [Tessalon] 200 mg PO TID PRN #90 capsule PRN Reason: Cough Continue RX: Aspirin 325 mg PO DAILY RX: amLODIPine [Norvasc] 10 mg PO DAILY RX: Atorvastatin Calcium [Lipitor] 20 mg PO DAILY RX: Albuterol Sulfate [Albuterol Inhaler] 1 puff IH Q4HR 30 Days inhaler RX: Albuterol Neb [Proventil Neb] 2.5 mg IH TID RX: Quetiapine Fumarate [Seroquel] 200 mg PO HS RX: Levothyroxine Sodium [Levo-T] 75 mcg PO DAILY RX: Venlafaxine XR (24 HR) [Effexor XR] 75 mg PO DAILY RX: Umeclidinium Brm/Vilanterol Tr [Anoro Ellipta 62.5-25 Mcg INH] 1 puff IH DAILY RX: Mirtazapine [Remeron] 15 mg PO HS RX: Oxybutynin Chloride [Ditropan Xl] 15 mg PO DAILY RX: Tizanidine HCl [Zanaflex] 4 mg PO BID PRN PRN Reason: Muscle Spasm RX: Famotidine [Pepcid] 20 mg PO BID PRN PRN Reason: Heartburn RX: Fluticasone Furoate [Arnuity Ellipta] 100 mcg IH DAILY RX: Metoprolol Succinate [Toprol Xl] 50 mg PO BID RX: OXcarbazepine [Oxcarbazepine] 600 mg PO TID RX: Roflumilast [Daliresp] 500 mcg PO DAILY RX: Venlafaxine XR (24 HR) [Effexor Xr] 150 mg PO DAILY Discontinued predniSONE [PredniSONE] See Taper PO TAPER 12 Days #30 tablet Home Medications: RX: Aspirin 325 mg PO DAILY 05/16/16 [History] RX: Atorvastatin Calcium [Lipitor] 20 mg PO DAILY 10/06/16 [History] RX: amLODIPine [Norvasc] 10 mg PO DAILY 05/16/16 [History] RX: Albuterol Sulfate [Albuterol Inhaler] 1 puff IH Q4HR 30 Days inhaler 07/03/16 [Rx] RX: Albuterol Neb [Proventil Neb] 2.5 mg IH TID 06/17/17 [History] RX: Quetiapine Fumarate [Seroquel] 200 mg PO HS 02/24/18 [History] RX: Levothyroxine Sodium [Levo-T] 75 mcg PO DAILY 05/13/18 [History] RX: Mirtazapine [Remeron] 15 mg PO HS 05/13/18 [History] RX: Umeclidinium Brm/Vilanterol Tr [Anoro Ellipta 62.5-25 Mcg INH] 1 puff IH DAILY 05/13/18 [History] RX: Venlafaxine XR (24 HR) [Effexor XR] 75 mg PO DAILY 05/13/18 [History] RX: Famotidine [Pepcid] 20 mg PO BID PRN 10/18/18 [History] RX: Fluticasone Furoate [Arnuity Ellipta] 100 mcg IH DAILY 10/18/18 [History] RX: Oxybutynin Chloride [Ditropan Xl] 15 mg PO DAILY 10/18/18 [History] RX: Tizanidine HCl [Zanaflex] 4 mg PO BID PRN 10/18/18 [History] RX: Metoprolol Succinate [Toprol Xl] 50 mg PO BID 10/19/18 [History] RX: OXcarbazepine [Oxcarbazepine] 600 mg PO TID 10/19/18 [History] RX: Roflumilast [Daliresp] 500 mcg PO DAILY 10/19/18 [History] RX: Venlafaxine XR (24 HR) [Effexor Xr] 150 mg PO DAILY 10/19/18 [History] RX: Benzonatate [Tessalon] 200 mg PO TID PRN #90 capsule 10/31/18 [Rx] Allergies/Adverse Reactions: Allergy/AdvReac Type Severity Reaction Status Date / Time diphenhydramine Allergy Hives Verified 10/28/18 17:43 [From Benadryl] egg Allergy Hives Verified 10/28/18 17:43 latex Allergy Rash Verified 10/28/18 17:43 Penicillins Allergy Difficulty Verified 10/28/18 17:43 Breathing tetracycline [Tetracycline] Allergy Difficulty Verified 10/28/18 17:43 Breathing acetic acid [From VoSol-HC] AdvReac Redness of Verified 10/28/18 17:43 Skin aloe vera AdvReac Redness of Verified 10/28/18 17:43 Skin bacitracin AdvReac Redness of Verified 10/28/18 17:43 [From Neosporin Skin ([id number])] capsaicin AdvReac Redness of Verified 10/28/18 17:43 Skin hydrocortisone AdvReac Redness of Verified 10/28/18 17:43 [From VoSol-HC] Skin Neomycin AdvReac Redness of Verified 10/28/18 17:43 [From Neosporin Skin ([id number])] polymyxin B AdvReac Redness of Verified 10/28/18 17:43 [From Neosporin Skin ([id number])] silver sulfadiazine AdvReac Redness of Verified 10/28/18 17:43 [From Silvadene] Skin Date of admission: 10/30/18 16:40 Primary care physician: Baltazar Chirinos DO Consults: 10/28/18 14:13 Consult to Nutrition [CONS] Routine Comment: Recent weight loss Consulting Provider: NUTRITION Reason for Dietary Consult: MST Score 10/28/18 17:47 Consult to Nurse Navigator [CONS] Routine Comment: 10/29/18 08:33 Consult to Nurse Navigator [CONS] Routine Comment: copd Discharging clinician: Vinh Banks Anticipated date of discharge: 10/31/18 - Constitutional Vitals: Temp Pulse Resp BP Pulse Ox 97.7 F 78 20 161/94 89 10/31/18 07:30 10/31/18 07:30 10/31/18 07:30 10/31/18 07:30 10/31/18 07:30 General appearance: Present: cooperative, A&O X 3, answers questions appropriately Exam: Gen: Vitals noted. No acute distress. Eyes: anicteric sclerae, moist conjunctivae; no lid-lag; Pupils equal and reactive to light HENT: Atraumatic; oropharynx clear with moist mucous membranes and no mucosal ulcerations; normal hard and soft palate Neck: Trachea midline; supple, no thyromegaly or lymphadenopathy Cardiac: RRR, no murmur, +S1/S2 Pulmonary: Significant wheezes diffusely both inspiratory and expiratory Abdomen: soft, nontender, no guarding. No masses or hepatosplenomegaly MSK: ROM intact, no joint swelling noted Extremities: no BLE edema, nontender calf, no cyanosis or clubbing Skin: Normal temperature, turgor and texture; no rash, ulcers or subcutaneous nodules Neuro: moves all extremities, no focal deficits. Psych: Appropriate mood and behavior. A&Ox3 - Patient Status Disposition: Home Health Service Condition: Fair Overall status at discharge: patient is progressing back to baseline - Discharge Instructions Instructions: Dyspnea (GEN), Pneumonia (GEN) Follow Up With: Baltazar Chirinos DO [Primary Care Provider] - 11/13/18 10:10 am (Please follow up as schedule...) Additional Instructions: Follow-up appointments: If there is not an appointment listed below, please call your physician and schedule a follow-up appointment. If you have congestive heart failure and your symptoms return, make an appointment with your physician. Will require outpatient follow-up within one week with primary care Medication List: Carry an up to date list of medications you are taking at all time. We have given you an updated medication list including any new medications that you have been prescribed. Please provide that list to your primary provider New Medications At Disharge: -Bactrim DS Twice a Day -Steroid Taper -Tessalon Pearls Three times a day Symptoms: If your condition changes or you experience any of the following symptoms, notify your physician immediately: Unusual or worsening pain, fever, persistent nausea and vomiting, bleeding, increase in swelling (especially in your legs), sudden weight gain, extreme dizziness, chest pain, increased drainage or redness from a wound or incision. Go to the emergency department if you experience a problem with breathing. Weights: If you have a history of swelling or shortness of breath, weigh yourself daily and notify your physician if you have a weight gain of two or more pounds in one day or 5 or more pounds in a week. If you experience any of the warning signs for stroke: Sudden numbness or weakness of the face, arm or leg; especially on one side of the body, sudden confusion, trouble speaking or understanding, sudden trouble seeing in one or both eyes, sudden trouble walking, dizziness, loss of balance or coordination, sudden sever headache with no cause; Call 911 or go to the emergency room. Stroke is a medical emergency. Some risk factors for stroke: Age, cigarette smoking, diabetes, excessive alcohol consumption, family history, high blood pressure, overweight, physical inactivity, prior stroke, heart attack, diagnosis of carotid artery stenosis or other artery disease. If you smoke, STOP: Smoking or tobacco use significantly increases your risk of heart and lung disease. Your chance of disease greatly increases if you continue to smoke. For more information, call the [employer] quit line for smoking cessation 5-299-UFDQ-NOW ( ) - Diet and Activity Activity: increase activity as tolerated, wear oxygen at all times Diet: advance to your usual diet <Ned Cruz - Last Filed: 11/03/18 18:52> Date of Encounter: 11/03/18 - Discharge Diagnosis (1) Acute exacerbation of chronic obstructive airways disease Status: Acute (2) CAD (coronary artery disease) Status: Chronic Qualifiers: Coronary Disease-Associated Artery/Lesion type: [place] artery [place] vs. transplanted heart: [place] heart Associated angina: without angina Qualified Code(s): I25.10 - Atherosclerotic heart disease of [place] coronary artery without angina pectoris (3) HTN (hypertension) Status: Chronic Qualifiers: Hypertension type: essential hypertension Qualified Code(s): I10 - Essential (primary) hypertension (4) Acute respiratory failure with hypoxia Status: Acute (5) Hypothyroid Status: Chronic Qualifiers: Hypothyroidism type: unspecified Qualified Code(s): E03.9 - Hypothyroidism, unspecified Hospital course: Ms. Joy is a 58 year old female - Time Spent with Patient Total time spent providing and/or coordinating discharge services: Date of admission: 10/30/18 16:40 Primary care physician: Baltazar Chirinos DO Consults: 10/28/18 14:13 Consult to Nutrition [CONS] Routine Comment: Recent weight loss Consulting Provider: NUTRITION Reason for Dietary Consult: MST Score 10/28/18 17:47 Consult to Nurse Navigator [CONS] Routine Comment: 10/29/18 08:33 Consult to Nurse Navigator [CONS] Routine Comment: copd - Constitutional Vitals: Temp Pulse Resp BP Pulse Ox 97.5 F L 99 18 137/83 92 11/03/18 15:16 11/03/18 15:16 11/03/18 15:16 11/03/18 15:16 11/03/18 15:16 - Attending Attestation I examined this patient and my medical decision-making was reviewed with the Resident Physician. I agree with the documented findings, disposition and treatment plan as described except to the extent set forth below. This is greater than 30 min. DC given the note, time with patient and documents.
[2018-10-31] MEDS ORDERED: Ipratropium/Albuterol Neb 3 ML IH PRN (07:50)
--- NOTE | 2018-10-31 07:51 | Physician Discharge Referral ---
<Vinh Banks - Last Filed: 10/31/18 07:49> Home Health/Hosp Referral Info Transfer to: Home Health Attending Provider: Ned Cruz Provider in Charge Post Discharge: PCP - Diagnosis (1) Acute exacerbation of chronic obstructive airways disease Priority: Primary Status: Acute (2) CAD (coronary artery disease) Priority: Secondary Status: Chronic (3) HTN (hypertension) Priority: Secondary Status: Chronic (4) Acute respiratory failure with hypoxia Priority: Secondary Status: Acute (5) Hypothyroid Priority: Secondary Status: Chronic - Respiratory Orders Oxygen / L per min Smoking Cessation: Smoking cessation has been advised. For more information, call the [place] Tobacco Quit Line at 2-368-NNZT-NOW. - Diet/Nutrition Diet/Nutrition Orders: Regular - Activity Activity Orders: Ambulate - Services Needed Following services are medically necessary services: Nursing, Home Health Aide - Transfer Medications Prescriptions: RX: Benzonatate [Tessalon] 200 mg PO TID PRN #90 capsule PRN Reason: Cough RX: predniSONE [PredniSONE] See Taper PO TAPER 12 Days #30 tablet RX: Sulfamethoxazole/Trimeth DS [Bactrim Ds] 1 each PO BID 3 Days #6 tablet Home Medications: RX: Aspirin 325 mg PO DAILY 05/16/16 [History] RX: Atorvastatin Calcium [Lipitor] 20 mg PO DAILY 05/16/16 [History] RX: amLODIPine [Norvasc] 10 mg PO DAILY 05/16/16 [History] RX: Albuterol Sulfate [Albuterol Inhaler] 1 puff IH Q4HR 30 Days inhaler 07/03/16 [Rx] RX: Albuterol Neb [Proventil Neb] 2.5 mg IH TID 06/17/17 [History] RX: Quetiapine Fumarate [Seroquel] 200 mg PO HS 02/24/18 [History] RX: Levothyroxine Sodium [Levo-T] 75 mcg PO DAILY 05/13/18 [History] RX: Mirtazapine [Remeron] 15 mg PO HS 05/13/18 [History] RX: Umeclidinium Brm/Vilanterol Tr [Anoro Ellipta 62.5-25 Mcg INH] 1 puff IH DAILY 05/13/18 [History] RX: Venlafaxine XR (24 HR) [Effexor XR] 75 mg PO DAILY 05/13/18 [History] RX: Famotidine [Pepcid] 20 mg PO BID PRN 10/18/18 [History] RX: Fluticasone Furoate [Arnuity Ellipta] 100 mcg IH DAILY 10/18/18 [History] RX: Oxybutynin Chloride [Ditropan Xl] 15 mg PO DAILY 10/18/18 [History] RX: Tizanidine HCl [Zanaflex] 4 mg PO BID PRN 10/18/18 [History] RX: Metoprolol Succinate [Toprol Xl] 50 mg PO BID 10/19/18 [History] RX: OXcarbazepine [Oxcarbazepine] 600 mg PO TID 10/19/18 [History] RX: Roflumilast [Daliresp] 500 mcg PO DAILY 10/19/18 [History] RX: Venlafaxine XR (24 HR) [Effexor Xr] 150 mg PO DAILY 10/19/18 [History] RX: Benzonatate [Tessalon] 200 mg PO TID PRN #90 capsule 10/31/18 [Rx] RX: Sulfamethoxazole/Trimeth DS [Bactrim Ds] 1 each PO BID 3 Days #6 tablet 10/31/18 [Rx] RX: predniSONE [PredniSONE] See Taper PO TAPER 12 Days #30 tablet 10/31/18 [Rx] Allergies/Adverse Reactions: Allergy/AdvReac Type Severity Reaction Status Date / Time diphenhydramine Allergy Hives Verified 10/28/18 17:43 [From Benadryl] egg Allergy Hives Verified 10/28/18 17:43 latex Allergy Rash Verified 10/28/18 17:43 Penicillins Allergy Difficulty Verified 10/28/18 17:43 Breathing tetracycline [Tetracycline] Allergy Difficulty Verified 10/28/18 17:43 Breathing acetic acid [From VoSol-HC] AdvReac Redness of Verified 10/28/18 17:43 Skin aloe vera AdvReac Redness of Verified 10/28/18 17:43 Skin bacitracin AdvReac Redness of Verified 10/28/18 17:43 [From Neosporin Skin ([id number])] capsaicin AdvReac Redness of Verified 10/28/18 17:43 Skin hydrocortisone AdvReac Redness of Verified 10/28/18 17:43 [From VoSol-HC] Skin Neomycin AdvReac Redness of Verified 10/28/18 17:43 [From Neosporin Skin ([id number])] polymyxin B AdvReac Redness of Verified 10/28/18 17:43 [From Neosporin Skin ([id number])] silver sulfadiazine AdvReac Redness of Verified 10/28/18 17:43 [From Silvadene] Skin Certification: Further, I certify that my clinical findings support that this patient is homebound (i.e. absences from home require considerable and taxing effort and are for medical reasons or baptism services or infrequently or short duration when for other reasons) because: Homebound Reason: Patient requires assistance of a person or device to safely leave home, Absences from home are contraindicated except to recieve medical care, Severity of cardiac or pulmonary status limits activity tolerance Attestation: My signature below is to certify that this patient is under my care and that I, or nurse practitioner, or a physician's assistant media buyer working with me, has a [id number] encounter with this patient. <Ned Cruz - Last Filed: 10/31/18 15:30> - Diagnosis (1) Acute exacerbation of chronic obstructive airways disease Status: Acute (2) CAD (coronary artery disease) Status: Chronic (3) HTN (hypertension) Status: Chronic (4) Acute respiratory failure with hypoxia Status: Acute (5) Hypothyroid Status: Chronic (6) DVT prophylaxis Status: Acute - Respiratory Orders Smoking Cessation: Smoking cessation has been advised. For more information, call the [place] Tobacco Quit Line at 7-272-YMEU-NOW. Certification: Further, I certify that my clinical findings support that this patient is homebound (i.e. absences from home require considerable and taxing effort and are for medical reasons or baptism services or infrequently or short duration when for other reasons) because: Attestation: My signature below is to certify that this patient is under my care and that I, or nurse practitioner, or a physician's assistant media buyer working with me, has a [id number] encounter with this patient. - Attending Attestation She remains fairly bronchospastic.. will not be able to DC today; may have to broaden coverage and increase steroids.
[2018-10-31] MEDS: OXcarbazepine 150 MG TABLET PO SCH ×3 (09:06→21:48)
[2018-10-31] MEDS: amLODIPine 5 MG TABLET PO SCH (09:06)
[2018-10-31] MEDS: Aspirin 325 MG TABLET PO SCH (09:06)
[2018-10-31] MEDS: Venlafaxine XR (24 HR) 75 MG CAP.ER.24H PO SCH (09:07)
[2018-10-31] MEDS: Sulfamethoxazole/Trimeth DS 1 EACH TABLET PO SCH ×2 (09:07→21:48)
[2018-10-31] MEDS: predniSONE 20 MG TABLET PO SCH (09:07)
[2018-10-31] MEDS: Metoprolol XL (24 HR) Succ 50 MG TAB.ER.24H PO SCH ×2 (09:07→21:49)
[2018-10-31] MEDS ORDERED: methylPREDNISolone 125 MG/2 ML VIAL IVP ONE (09:23)
[2018-10-31] MEDS: Budesonide/Formoterol 80/4.5 MDI IH SCH ×2 (11:00→22:37)
[2018-10-31] MEDS: Ondansetron ODT 4 MG TAB.RAPDIS SL PRN ×2 (12:24→21:23)
[2018-10-31] MEDS: Saliva Stimulant 100ml BOTTLE PO PRN ×2 (12:32→14:44)
[2018-10-31] MEDS: Cefepime HCl 2,000 MG in Water for inj. (sterile) 20 ML 20 ML IVP SCH ×2 (14:43→23:28)
[2018-10-31] MEDS: Famotidine 20 MG TABLET PO PRN (21:23)
[2018-10-31] MEDS: Mirtazapine 15 MG TABLET PO SCH (21:49)
[2018-11-01] MEDS: Ipratropium/Albuterol Neb 3 ML IH SCH ×4 (04:04→22:30)
[2018-11-01] MEDS: *HR* Heparin 5,000 UNIT/ML VIAL SQ SCH ×2 (05:53→17:14)
--- NOTE | 2018-11-01 07:48 | Internal Med Progress Note ---
<Vinh Banks - Last Filed: 11/01/18 07:46> Hospitalist Progress Note - Encounter Date of Encounter: 11/01/18 Time of Encounter: 07:46 - Subjective Interval History: The patient is resting comfortably in bed at time of examination. Her discharge was canceled yesterday after she became more short of breath and was wheezing m uch more extensively than she had been previously. Her antibiotics had to be increased and she needed a shot of steroids that she had previously not required. She says that she is feeling significantly better than she was yesterday, however she is does still have a significant amount wheezing and shortness of breath. In addition this, she says that she has developed a sore throat and she feels much more congested than she was previously. She does not feel as though she is ready to go home. I do agree with this assessment. - Exam Vitals: Temp Pulse Resp BP Pulse Ox 97.8 F 74 16 119/72 91 11/01/18 07:04 11/01/18 07:04 11/01/18 07:04 11/01/18 07:04 11/01/18 07:04 Exam: Gen: Vitals noted. No acute distress. Eyes: anicteric sclerae, moist conjunctivae; no lid-lag; Pupils equal and reactive to light HENT: Atraumatic; oropharynx clear with moist mucous membranes and no mucosal ulcerations; normal hard and soft palate Neck: Trachea midline; supple, no thyromegaly or lymphadenopathy Cardiac: RRR, no murmur, +S1/S2 Pulmonary: moderate wheezes diffusely both inspiratory and expiratory however improved from prior exam Abdomen: soft, nontender, no guarding. No masses or hepatosplenomegaly MSK: ROM intact, no joint swelling noted Extremities: no BLE edema, nontender calf, no cyanosis or clubbing Psych: Appropriate mood and behavior. A&Ox3 - Assessment and Plan (1) Acute respiratory failure with hypoxia Current Visit: Yes Status: Acute Assessment and Plan: Acute respiratory failure with hypoxia secondary to acute COPD exacerbation with likely CAP Treated with PO Prednisone and Bactrim, Aerosols PRN planned for discharge yesterday hoever patient got progressively worse throughout the day Required shot of IV solumedrol, broadened coverage with IV Cefepime yesterday Planned to repeat image the patient if she had not shown improvement today, however she has improved dramatically I think she should stay overnight one more night as her respiratory status still remains poor Plan Continue Cefepime Day 2, Bactrim day 4 PO prednisone, steroid day 4 Added Symbicort BID Duonebs PRN and Scheduled (2) Acute exacerbation of chronic obstructive airways disease Current Visit: Yes Status: Acute Assessment and Plan: As above (3) CAD (coronary artery disease) Current Visit: No Status: Chronic Assessment and Plan: Continue home aspirin, statin, metoprolol (4) HTN (hypertension) Current Visit: No Status: Chronic Assessment and Plan: Continue home amlodipine (5) Hypothyroid Current Visit: No Status: Chronic Assessment and Plan: Continue home levothyroxine - Time Spent with Patient Total time spent is greater than 50% in coordination of care (as documented) at patient's floor/unit and/or counseling patient: Internal Medicine: Result - Labs CBC & Chem 7: 10/28/18 14:42 10/28/18 14:42 Consult Discharge Plan - Plan Additional Instructions: Follow-up appointments: If there is not an appointment listed below, please call your physician and schedule a follow-up appointment. If you have congestive heart failure and your symptoms return, make an appointment with your physician. Will require outpatient follow-up within one week with primary care Medication List: Carry an up to date list of medications you are taking at all time. We have given you an updated medication list including any new medications that you have been prescribed. Please provide that list to your primary provider New Medications At Disharge: -Bactrim DS Twice a Day -Steroid Taper -Tessalon Pearls Three times a day Symptoms: If your condition changes or you experience any of the following symptoms, notify your physician immediately: Unusual or worsening pain, fever, persistent nausea and vomiting, bleeding, increase in swelling (especially in your legs), sudden weight gain, extreme dizziness, chest pain, increased drainage or redness from a wound or incision. Go to the emergency department if you experience a problem with breathing. Weights: If you have a history of swelling or shortness of breath, weigh yourself daily and notify your physician if you have a weight gain of two or more pounds in one day or 5 or more pounds in a week. If you experience any of the warning signs for stroke: Sudden numbness or weakness of the face, arm or leg; especially on one side of the body, sudden confusion, trouble speaking or understanding, sudden trouble seeing in one or both eyes, sudden trouble walking, dizziness, loss of balance or coordination, sudden sever headache with no cause; Call 911 or go to the emergency room. Stroke is a medical emergency. Some risk factors for stroke: Age, cigarette smoking, diabetes, excessive alcohol consumption, family history, high blood pressure, overweight, physical inactivity, prior stroke, heart attack, diagnosis of carotid artery stenosis or other artery disease. If you smoke, STOP: Smoking or tobacco use significantly increases your risk of heart and lung d isease. Your chance of disease greatly increases if you continue to smoke. For more information, call the [employer] tobacco quit line for smoking cessation 8-574-LZEJ-NOW ( ) Referrals: Baltazar Chirinos DO [Primary Care Provider] - Prescriptions: RX: Benzonatate [Tessalon] 200 mg PO TID PRN #90 capsule PRN Reason: Cough RX: predniSONE [PredniSONE] See Taper PO TAPER 12 Days #30 tablet RX: Sulfamethoxazole/Trimeth DS [Bactrim Ds] 1 each PO BID 3 Days #6 tablet <Ned Cruz - Last Filed: 11/01/18 18:46> Hospitalist Progress Note - Encounter Date of Encounter: 11/01/18 - Exam Vitals: Temp Pulse Resp BP Pulse Ox 97.3 F L 74 19 136/76 91 11/01/18 15:45 11/01/18 15:45 11/01/18 15:45 11/01/18 15:45 11/01/18 15:45 - Assessment and Plan (1) Acute exacerbation of chronic obstructive airways disease Current Visit: Yes Status: Acute (2) CAD (coronary artery disease) Current Visit: No Status: Chronic (3) HTN (hypertension) Current Visit: No Status: Chronic (4) Acute respiratory failure with hypoxia Current Visit: Yes Status: Acute (5) Hypothyroid Current Visit: No Status: Chronic - Time Spent with Patient Total time spent is greater than 50% in coordination of care (as documented) at patient's floor/unit and/or counseling patient: Internal Medicine: Result - Labs CBC & Chem 7: 10/28/18 14:42 10/28/18 14:42 - Attending Attestation I examined this patient and my medical decision-making was reviewed with the Resident Physician. I agree with the documented findings, disposition and treatment plan as described except to the extent set forth below. __ <DarrenVinh - Last Filed: 11/01/18 07:46> (3) CAD (coronary artery disease) Qualifiers: Coronary Disease-Associated Artery/Lesion type: [place] artery [place] vs. transplanted heart: [place] heart Associated angina: without angina Qualified Code(s): I25.10 - Atherosclerotic heart disease of [place] coronary artery without angina pectoris (4) HTN (hypertension) Qualifiers: Hypertension type: essential hypertension Qualified Code(s): I10 - Essential (primary) hypertension (5) Hypothyroid Qualifiers: Hypothyroidism type: unspecified Qualified Code(s): E03.9 - Hypothyroidism, unspecified <Ned Cruz - Last Filed: 11/01/18 18:46> (2) CAD (coronary artery disease) Qualifiers: Coronary Disease-Associated Artery/Lesion type: [place] artery [place] vs. transplanted heart: [place] heart Associated angina: without angina Qualified Code(s): I25.10 - Atherosclerotic heart disease of [place] coronary artery without angina pectoris (3) HTN (hypertension) Qualifiers: Hypertension type: essential hypertension Qualified Code(s): I10 - Essential (primary) hypertension (5) Hypothyroid Qualifiers: Hypothyroidism type: unspecified Qualified Code(s): E03.9 - Hypothyroidism, unspecified
[2018-11-01] MEDS: Venlafaxine XR (24 HR) 75 MG CAP.ER.24H PO SCH (09:00)
[2018-11-01] MEDS: Sulfamethoxazole/Trimeth DS 1 EACH TABLET PO SCH ×2 (09:00→20:41)
[2018-11-01] MEDS: predniSONE 20 MG TABLET PO SCH (09:00)
[2018-11-01] MEDS: Saliva Stimulant 100ml BOTTLE PO PRN (09:00)
[2018-11-01] MEDS: Metoprolol XL (24 HR) Succ 50 MG TAB.ER.24H PO SCH ×2 (09:00→20:41)
[2018-11-01] MEDS: Aspirin 325 MG TABLET PO SCH (09:01)
[2018-11-01] MEDS: OXcarbazepine 150 MG TABLET PO SCH ×3 (09:01→20:40)
[2018-11-01] MEDS: amLODIPine 5 MG TABLET PO SCH (09:01)
[2018-11-01] MEDS: Cefepime HCl 2,000 MG in Water for inj. (sterile) 20 ML 20 ML IVP SCH ×2 (09:02→15:33)
[2018-11-01] MEDS: Ondansetron ODT 4 MG TAB.RAPDIS SL PRN ×2 (09:04→17:14)
[2018-11-01] MEDS: Budesonide/Formoterol 80/4.5 MDI IH SCH ×2 (10:23→22:30)
[2018-11-01] MEDS: traMADol 50 MG TABLET PO PRN ×2 (14:03→20:48)
[2018-11-01] MEDS: Famotidine 20 MG TABLET PO PRN (20:41)
[2018-11-01] MEDS: Mirtazapine 15 MG TABLET PO SCH (20:41)
[2018-11-01] MEDS ORDERED: Prochlorperazine 10 MG/2 ML VIAL IVP ONE (21:06)
[2018-11-02] MEDS: Cefepime HCl 2,000 MG in Water for inj. (sterile) 20 ML 20 ML IVP SCH ×3 (00:52→08:01)
[2018-11-02] MEDS: Ipratropium/Albuterol Neb 3 ML IH SCH ×4 (04:25→21:55)
[2018-11-02] MEDS: *HR* Heparin 5,000 UNIT/ML VIAL SQ SCH ×2 (05:46→18:54)
[2018-11-02] MEDS: Metoprolol XL (24 HR) Succ 50 MG TAB.ER.24H PO SCH (07:58)
[2018-11-02] MEDS: Aspirin 325 MG TABLET PO SCH (07:58)
[2018-11-02] MEDS: predniSONE 20 MG TABLET PO SCH ×2 (07:58→21:40)
[2018-11-02] MEDS: OXcarbazepine 150 MG TABLET PO SCH ×3 (07:58→21:40)
[2018-11-02] MEDS: amLODIPine 5 MG TABLET PO SCH (07:58)
[2018-11-02] MEDS: Venlafaxine XR (24 HR) 75 MG CAP.ER.24H PO SCH (07:59)
[2018-11-02] MEDS: Sulfamethoxazole/Trimeth DS 1 EACH TABLET PO SCH (08:01)
[2018-11-02] MEDS: traMADol 50 MG TABLET PO PRN ×2 (08:58→16:13)
[2018-11-02] MEDS: Budesonide/Formoterol 80/4.5 MDI IH SCH ×2 (09:56→21:55)
[2018-11-02] MEDS ORDERED: Azithromycin 250 MG TABLET PO ONE (10:39)
[2018-11-02] MEDS: Cefdinir 300 MG CAPSULE PO SCH ×2 (11:27→21:42)
[2018-11-02] MEDS: Famotidine 20 MG TABLET PO PRN (11:29)
[2018-11-02] MEDS ORDERED: Furosemide 20 MG/2 ML VIAL IVP ONE (13:29)
--- NOTE | 2018-11-02 13:59 | Internal Med Progress Note ---
<WellingtonSmithaNghia Jan - Last Filed: 11/02/18 16:14> Hospitalist Progress Note - Encounter Date of Encounter: 11/02/18 Time of Encounter: 09:00 - Subjective Interval History: Patient complaining of continued shortness of breath and new onset vertigo. She also asked if we can prescribe a portable oxygen concentrator for home. Patient also refusing to take cefepime or bactrim because she states they make her vomit. - Exam Vitals: Temp Pulse Resp BP Pulse Ox 97.4 F L 78 16 113/75 90 11/02/18 10:55 11/02/18 10:55 11/02/18 10:55 11/02/18 10:55 11/02/18 13:51 Exam: Gen: Vitals noted. No acute distress. Eyes: anicteric sclerae, moist conjunctivae; no lid-lag; Pupils equal and reactive to light HENT: Atraumatic; oropharynx clear with moist mucous membranes and no mucosal ulcerations; normal hard and soft palate Neck: Trachea midline; supple, no thyromegaly or lymphadenopathy Cardiac: RRR, no murmur, +S1/S2 Pulmonary: diffuse inspiratory and expiratory wheeze, diffuse scattered rhonchi Abdomen: soft, nontender, no guarding. No masses or hepatosplenomegaly MSK: ROM intact, no joint swelling noted Extremities: no BLE edema, nontender calf, no cyanosis or clubbing Psych: Appropriate mood and behavior. A&Ox3 - Assessment and Plan (1) Acute respiratory failure with hypoxia Current Visit: Yes Status: Acute Assessment and Plan: Acute respiratory failure with hypoxia secondary to acute COPD exacerbation with likely CAP Treated with PO Prednisone and Bactrim, Aerosols PRN Required shot of IV solumedrol yesterday, broadened coverage with IV Cefepime yesterday Patient refusing Cefepime and Bactrim due to GI intolerance Clinical condition continues to wax and wane We will attempt to rule out heart failure component Plan switch to po AZT and Omnicef, day 1 6th day total antibiotics with missed doses Increase PO prednisone to 40mg BID Symbicort twice a day, theophylline twice a day Echocardiogram ordered and pending Duonebs PRN and Scheduled (2) Acute exacerbation of chronic obstructive airways disease Current Visit: Yes Status: Acute Assessment and Plan: As above (3) CAD (coronary artery disease) Current Visit: No Status: Chronic Assessment and Plan: Continue home aspirin, statin Metoprolol held due to respiratory status We will monitor heart rate and blood pressure closely (4) HTN (hypertension) Current Visit: No Status: Chronic Assessment and Plan: Continue home amlodipine (5) Hypothyroid Current Visit: No Status: Chronic Assessment and Plan: Continue home levothyroxine DVT Prophylaxis: Subcutaneous heparin - Time Spent with Patient Total time spent is greater than 50% in coordination of care (as documented) at patient's floor/unit and/or counseling patient: Internal Medicine: Result - Labs CBC & Chem 7: 10/28/18 14:42 10/28/18 14:42 Consult Discharge Plan - Plan Additional Instructions: Follow-up appointments: If there is not an appointment listed below, please call your physician and schedule a follow-up appointment. If you have congestive heart failure and your symptoms return, make an appointment with your physician. Will require outpatient follow-up within one week with primary care Medication List: Carry an up to date list of medications you are taking at all time. We have given you an updated medication list including any new medications that you have been prescribed. Please provide that list to your primary provider New Medications At Disharge: -Bactrim DS Twice a Day -Steroid Taper -Tessalon Pearls Three times a day Symptoms: If your condition changes or you experience any of the following symptoms, notify your physician immediately: Unusual or worsening pain, fever, persistent nausea and vomiting, bleeding, increase in swelling (especially in your legs), sudden weight gain, extreme dizziness, chest pain, increased drainage or redness from a wound or incision. Go to the emergency department if you experience a problem with breathing. Weights: If you have a history of swelling or shortness of breath, weigh yourself daily and notify your physician if you have a weight gain of two or more pounds in one day or 5 or more pounds in a week. If you experience any of the warning signs for stroke: Sudden numbness or weakness of the face, arm or leg; especially on one side of the body, sudden confusion, trouble speaking or understanding, sudden trouble seeing in one or both eyes, sudden trouble walking, dizziness, loss of balance or coordination, sudden sever headache with no cause; Call 911 or go to the emergency room. Stroke is a medical emergency. Some risk factors for stroke: Age, cigarette smoking, diabetes, excessive alcohol consumption, family history, high blood pressure, overweight, physical inactivity, prior stroke, heart attack, diagnosis of carotid artery stenosis or other artery disease. If you smoke, STOP: Smoking or tobacco use significantly increases your risk of heart and lung disease. Your chance of disease greatly increases if you continue to smoke. For more information, call the [place] tobacco quit line for smoking cessation 7-159-GMWI-NOW ( ) Referrals: Baltazar Chirinos DO [Primary Care Provider] - Prescriptions: RX: Benzonatate [Tessalon] 200 mg PO TID PRN #90 capsule PRN Reason: Cough RX: predniSONE [PredniSONE] See Taper PO TAPER 12 Days #30 tablet RX: Sulfamethoxazole/Trimeth DS [Bactrim Ds] 1 each PO BID 3 Days #6 tablet <Ned Cruz - Last Filed: 11/02/18 19:07> Hospitalist Progress Note - Encounter Date of Encounter: 11/02/18 - Exam Vitals: Temp Pulse Resp BP Pulse Ox 97.6 F 79 16 102/63 92 11/02/18 15:18 11/02/18 15:18 11/02/18 15:49 11/02/18 15:18 11/02/18 15:49 - Assessment and Plan (1) Acute exacerbation of chronic obstructive airways disease Current Visit: Yes Status: Acute (2) CAD (coronary artery disease) Current Visit: No Status: Chronic (3) HTN (hypertension) Current Visit: No Status: Chronic (4) Acute respiratory failure with hypoxia Current Visit: Yes Status: Acute (5) Hypothyroid Current Visit: No Status: Chronic - Time Spent with Patient Total time spent is greater than 50% in coordination of care (as documented) at patient's floor/unit and/or counseling patient: Internal Medicine: Result - Labs CBC & Chem 7: 10/28/18 14:42 10/28/18 14:42 - Attending Attestation I examined this patient and my medical decision-making was reviewed with the Resident Physician. I agree with the documented findings, disposition and treatment plan as described except to the extent set forth below. <Nghia Paris Jan - Last Filed: 11/02/18 16:14> (3) CAD (coronary artery disease) Qualifiers: Coronary Disease-Associated Artery/Lesion type: [place] artery [place] vs. transplanted heart: [place] heart Associated angina: without angina Qualified Code(s): I25.10 - Atherosclerotic heart disease of [place] coronary artery without angina pectoris (4) HTN (hypertension) Qualifiers: Hypertension type: essential hypertension Qualified Code(s): I10 - Essential (primary) hypertension (5) Hypothyroid Qualifiers: Hypothyroidism type: unspecified Qualified Code(s): E03.9 - Hypothyroidism, unspecified <Ned Cruz - Last Filed: 11/02/18 19:07> (2) CAD (coronary artery disease) Qualifiers: Coronary Disease-Associated Artery/Lesion type: [place] artery [place] vs. transplanted heart: [place] heart Associated angina: without angina Qualified Code(s): I25.10 - Atherosclerotic heart disease of [place] coronary artery without angina pectoris (3) HTN (hypertension) Qualifiers: Hypertension type: essential hypertension Qualified Code(s): I10 - Essential (primary) hypertension (5) Hypothyroid Qualifiers: Hypothyroidism type: unspecified Qualified Code(s): E03.9 - Hypothyroidism, unspecified
[2018-11-02] MEDS ORDERED: *HR* Promethazine 25 MG/ML VIAL IVP PRN ×2 (14:10)
[2018-11-02] MEDS ORDERED: Perflutren Lipid Microsphere 1.3 ML in 0.9 % Sodium Chloride 8.7 ML IVP ONE (17:56)
[2018-11-02] MEDS: Mirtazapine 15 MG TABLET PO SCH (21:39)
[2018-11-03] MEDS: Ipratropium/Albuterol Neb 3 ML IH SCH ×3 (03:57→16:16)
[2018-11-03] MEDS: *HR* Heparin 5,000 UNIT/ML VIAL SQ SCH (06:10)
[2018-11-03] MEDS: Aspirin 325 MG TABLET PO SCH (08:04)
[2018-11-03] MEDS: OXcarbazepine 150 MG TABLET PO SCH ×2 (08:04→14:40)
[2018-11-03] MEDS: Venlafaxine XR (24 HR) 75 MG CAP.ER.24H PO SCH (08:04)
[2018-11-03] MEDS: amLODIPine 5 MG TABLET PO SCH (08:04)
[2018-11-03] MEDS: predniSONE 20 MG TABLET PO SCH ×3 (08:05→16:04)
[2018-11-03] MEDS: Cefdinir 300 MG CAPSULE PO SCH (08:05)
[2018-11-03] MEDS ORDERED: Azithromycin 250 MG TABLET PO SCH (09:00)
--- NOTE | 2018-11-03 10:50 | Discharge Summary ---
- NOTES TO OUTPATIENT PROVIDER Notes to Outpatient Provider: Ms. Joy was admitted and treated for acute hypoxic respiratory failure secondary to COPD exacerbation +/- pneumonia. Her hospital course was complicated by fluctuating clinical improvements and declination's. Eventually her clinical condition did stabilize with the addit ion of theophylline, increased steroid dosages, Lasix. Discharge in stable condition with home medications and 12 day. Prednisone taper and new theophylline prescription Orders not resulted at time of discharge: Pending orders 10/29/18 06:00 EKG [ECG 12 lead ECG] [ECG] AM 0600 Date of Encounter: 11/03/18 Time of Encounter: 08:00 - Discharge Diagnosis (1) Acute respiratory failure with hypoxia Priority: Primary Status: Resolved Assessment and Plan: Acute respiratory failure with hypoxia secondary to acute COPD exacerbation with likely CAP Treated with PO Prednisone and Bactrim, Aerosols PRN Required shot of IV solumedrol yesterday, broadened coverage with IV Cefepime yesterday Patient refusing Cefepime and Bactrim due to GI intolerance Clinical condition continues to wax and wane Echo relatively normal Patient not tolerating antibiotics, no longer suspect infection, discontinue antibiotics Discharge with home medications, prednisone taper, theophylline (2) Acute exacerbation of chronic obstructive airways disease Priority: Primary Status: Resolved Assessment and Plan: As above (3) CAD (coronary artery disease) Priority: Secondary Status: Chronic Assessment and Plan: Discharge with home meds Qualifiers: Coronary Disease-Associated Artery/Lesion type: [place] artery [place] vs. transplanted heart: [place] heart Associated angina: without angina Qualified Code(s): I25.10 - Atherosclerotic heart disease of [place] coronary artery without angina pectoris (4) HTN (hypertension) Priority: Secondary Status: Chronic Assessment and Plan: Continue home amlodipine Qualifiers: Hypertension type: essential hypertension Qualified Code(s): I10 - Essential (primary) hypertension (5) Hypothyroid Priority: Secondary Status: Chronic Qualifiers: Hypothyroidism type: unspecified Qualified Code(s): E03.9 - Hypothyroidism, unspecified Hospital course: Ms. Joy is a 58 year old female who is admitted and treated for acute on chronic hypoxic respiratory failure secondary to COPD exacerbation and suspected community-acquired pneumonia. She was recently admitted and discharged for the same thing. On evaluation it was determined that the patient was not strictly compliant with medications after previous discharge. She was started on regimen of supplement oxygen, steroids, bronchodilators, antibiotics. During her hospital course her clinical condition continued to wax and wane and various regimens of antibiotics and steroid dosages were required. The addition of Lasix, theophylline, increased prednisone dosages eventually resolved her clinical condition. She did not tolerate antibiotics, there were discontinued as she was no longer suspected to have infection. She will be discharged in stable condition with home medications, prednisone taper, addition of theophylli ne. Discharge discussed with: patient - Time Spent with Patient Total time spent providing and/or coordinating discharge services: - Discharge Medications Prescriptions: New Benzonatate [Tessalon] 200 mg PO TID PRN #90 capsule PRN Reason: Cough Continue Aspirin 325 mg PO DAILY amLODIPine [Norvasc] 10 mg PO DAILY Atorvastatin Calcium [Lipitor] 20 mg PO DAILY Albuterol Sulfate [Albuterol Inhaler] 1 puff IH Q4HR 30 Days inhaler Albuterol Neb [Proventil Neb] 2.5 mg IH TID Quetiapine Fumarate [Seroquel] 200 mg PO HS Levothyroxine Sodium [Levo-T] 75 mcg PO DAILY Venlafaxine XR (24 HR) [Effexor XR] 75 mg PO DAILY Umeclidinium Brm/Vilanterol Tr [Anoro Ellipta 62.5-25 Mcg INH] 1 puff IH DAILY Mirtazapine [Remeron] 15 mg PO HS Oxybutynin Chloride [Ditropan Xl] 15 mg PO DAILY Tizanidine HCl [Zanaflex] 4 mg PO BID PRN PRN Reason: Muscle Spasm Famotidine [Pepcid] 20 mg PO BID PRN PRN Reason: Heartburn Fluticasone Furoate [Arnuity Ellipta] 100 mcg IH DAILY Metoprolol Succinate [Toprol Xl] 50 mg PO BID OXcarbazepine [Oxcarbazepine] 600 mg PO TID Roflumilast [Daliresp] 500 mcg PO DAILY Venlafaxine XR (24 HR) [Effexor Xr] 150 mg PO DAILY Discontinued predniSONE [PredniSONE] See Taper PO TAPER 12 Days #30 tablet Home Medications: Aspirin 325 mg PO DAILY 05/16/16 [History] Atorvastatin Calcium [Lipitor] 20 mg PO DAILY 05/16/16 [History] amLODIPine [Norvasc] 10 mg PO DAILY 05/16/16 [History] Albuterol Sulfate [Albuterol Inhaler] 1 puff IH Q4HR 30 Days inhaler 07/03/16 [Rx] Albuterol Neb [Proventil Neb] 2.5 mg IH TID 06/17/17 [History] Quetiapine Fumarate [Seroquel] 200 mg PO HS 02/24/18 [History] Levothyroxine Sodium [Levo-T] 75 mcg PO DAILY 05/13/18 [History] Mirtazapine [Remeron] 15 mg PO HS 05/13/18 [History] Umeclidinium Brm/Vilanterol Tr [Anoro Ellipta 62.5-25 Mcg INH] 1 puff IH DAILY 05/13/18 [History] Venlafaxine XR (24 HR) [Effexor XR] 75 mg PO DAILY 05/13/18 [History] Famotidine [Pepcid] 20 mg PO BID PRN 10/18/18 [History] Fluticasone Furoate [Arnuity Ellipta] 100 mcg IH DAILY 10/18/18 [History] Oxybutynin Chloride [Ditropan Xl] 15 mg PO DAILY 10/18/18 [History] Tizanidine HCl [Zanaflex] 4 mg PO BID PRN 10/18/18 [History] Metoprolol Succinate [Toprol Xl] 50 mg PO BID 10/19/18 [History] OXcarbazepine [Oxcarbazepine] 600 mg PO TID 10/19/18 [History] Roflumilast [Daliresp] 500 mcg PO DAILY 10/19/18 [History] Venlafaxine XR (24 HR) [Effexor Xr] 150 mg PO DAILY 10/19/18 [History] Benzonatate [Tessalon] 200 mg PO TID PRN #90 capsule 10/31/18 [Rx] Theophylline Anhydrous [Theophylline] 400 mg PO DAILY 30 Days #30 tab.er.24h 11/03/18 [Rx] predniSONE [PredniSONE] See Taper PO DAILY 12 Days #30 tablet 11/03/18 [Rx] Allergies/Adverse Reactions: Allergy/AdvReac Type Severity Reaction Status Date / Time diphenhydramine Allergy Hives Verified 10/28/18 17:43 [From Benadryl] egg Allergy Hives Verified 10/28/18 17:43 latex Allergy Rash Verified 10/28/18 17:43 Penicillins Allergy Difficulty Verified 10/28/18 17:43 Breathing tetracycline [Tetracycline] Allergy Difficulty Verified 10/28/18 17:43 Breathing acetic acid [From VoSol-HC] AdvReac Redness of Verified 10/28/18 17:43 Skin aloe vera AdvReac Redness of Verified 10/28/18 17:43 Skin bacitracin AdvReac Redness of Verified 10/28/18 17:43 [From Neosporin Skin ([id number])] capsaicin AdvReac Redness of Verified 10/28/18 17:43 Skin hydrocortisone AdvReac Redness of Verified 10/28/18 17:43 [From VoSol-HC] Skin Neomycin AdvReac Redness of Verified 10/28/18 17:43 [From Neosporin Skin ([id number])] polymyxin B AdvReac Redness of Verified 10/28/18 17:43 [From Neosporin Skin ([id number])] silver sulfadiazine AdvReac Redness of Verified 10/28/18 17:43 [From Silvadene] Skin Date of admission: 10/30/18 16:40 Primary care physician: Baltazar Chirinos DO Consults: 10/28/18 14:13 Consult to Nutrition [CONS] Routine Comment: Recent weight loss Consulting Provider: NUTRITION Reason for Dietary Consult: MST Score 10/28/18 17:47 Consult to Nurse Navigator [CONS] Routine Comment: 10/29/18 08:33 Consult to Nurse Navigator [CONS] Routine Comment: copd Discharging clinician: Nghia Paris Anticipated date of discharge: 11/03/18 - Constitutional Vitals: Temp Pulse Resp BP Pulse Ox 97.7 F 83 18 150/90 92 11/03/18 07:06 11/03/18 07:06 11/03/18 07:06 11/03/18 07:06 11/03/18 07:06 General appearance: Present: cooperative, A&O X 3, answers questions appropriately Exam: Gen: Vitals noted. No acute distress. Eyes: anicteric sclerae, moist conjunctivae; no lid-lag; Pupils equal and reactive to light HENT: Atraumatic; oropharynx clear with moist mucous membranes and no mucosal ulcerations; normal hard and soft palate Neck: Trachea midline; supple, no thyromegaly or lymphadenopathy Cardiac: RRR, no murmur, +S1/S2 Pulmonary: diffuse inspiratory and expiratory wheeze, improved from yesterday, no rhonchi Abdomen: soft, nontender, no guarding. No masses or hepatosplenomegaly MSK: ROM intact, no joint swelling noted Extremities: no BLE edema, nontender calf, no cyanosis or clubbing Psych: Appropriate mood and behavior. A&Ox3 - Patient Status Disposition: Home Health Service Condition: Fair Functional capacity at discharge: independent ambulation Overall status at discharge: patient is progressing back to baseline - Discharge Instructions Instructions: Dyspnea (GEN), Pneumonia (GEN) Follow Up With: Baltazar Chirinos DO [Primary Care Provider] - 11/13/18 10:10 am (Please follow up as schedule...) Additional Instructions: Follow-up appointments: If there is not an appointment listed below, please call your physician and schedule a follow-up appointment. If you have congestive heart failure and your symptoms return, make an appointment with your physician. Will require outpatient follow-up within one week with primary care Medication List: Carry an up to date list of medications you are taking at all time. We have given you an updated medication list including any new medications that you have been prescribed. Please provide that list to your primary provider New Medications At Disharge: -Bactrim DS Twice a Day -Steroid Taper -Tessalon Pearls Three times a day Symptoms: If your condition changes or you experience any of the following symptoms, notify your physician immediately: Unusual or worsening pain, fever, persistent nausea and vomiting, bleeding, increase in swelling (especially in your legs), sudden weight gain, extreme dizziness, chest pain, increased drainage or redness from a wound or incision. Go to the emergency department if you experience a problem with breathing. Weights: If you have a history of swelling or shortness of breath, weigh yourself daily and notify your physician if you have a weight gain of two or more pounds in one day or 5 or more pounds in a week. If you experience any of the warning signs for stroke: Sudden numbness or weakness of the face, arm or leg; especially on one side of the body, sudden confusion, trouble speaking or understanding, sudden trouble seeing in one or both eyes, sudden trouble walking, dizziness, loss of balance or coordination, sudden sever headache with no cause; Call 911 or go to the emergency room. Stroke is a medical emergency. Some risk factors for stroke: Age, cigarette smoking, diabetes, excessive alcohol consumption, family history, high blood pressure, overweight, physical inactivity, prior stroke, heart attack, diagnosis of carotid artery stenosis or other artery disease. If you smoke, STOP: Smoking or tobacco use significantly increases your risk of heart and lung disea se. Your chance of disease greatly increases if you continue to smoke. For more information, call the [place] tobacco quit line for smoking cessation 6-608-EOUC-NOW ( ) - Diet and Activity Activity: increase activity as tolerated, wear oxygen at all times Diet: advance to your usual diet
[2018-11-03] MEDS: Budesonide/Formoterol 80/4.5 MDI IH SCH (11:18)
[2018-11-03] MEDS: traMADol 50 MG TABLET PO PRN (13:18)
[2018-11-03 15:17] VITALS: BP 137/83
--- NOTE | 2018-11-03 16:47 | Physician Discharge Referral ---
<Nghia Paris - Last Filed: 11/03/18 16:46> Home Health/Hosp Referral Info Transfer to: Home Health Attending Provider: Nancy Provider in Charge Post Discharge: PCP - Diagnosis (1) Acute respiratory failure with hypoxia Priority: Primary Status: Acute (2) Acute exacerbation of chronic obstructive airways disease Priority: Primary Status: Acute (3) CAD (coronary artery disease) Priority: Secondary Status: Chronic (4) HTN (hypertension) Priority: Secondary Status: Chronic (5) Hypothyroid Priority: Secondary Status: Chronic - Respiratory Orders Oxygen / L per min (4LNC day and night) Smoking Cessation: Smoking cessation has been advised. For more information, call the [place] Tobacco Quit Line at 6-543-XYAR-NOW. - Diet/Nutrition Diet/Nutrition Orders: Regular - Activity Activity Orders: Up ad daryl - Services Needed Following services are medically necessary services: Nursing, Home Health Aide - Transfer Medications Prescriptions: RX: Benzonatate [Tessalon] 200 mg PO TID PRN #90 capsule PRN Reason: Cough Home Medications: RX: Aspirin 325 mg PO DAILY 05/16/16 [History] RX: Atorvastatin Calcium [Lipitor] 20 mg PO DAILY 05/16/16 [History] RX: amLODIPine [Norvasc] 10 mg PO DAILY 05/16/16 [History] RX: Albuterol Sulfate [Albuterol Inhaler] 1 puff IH Q4HR 30 Days inhaler 07/03/16 [Rx] RX: Albuterol Neb [Proventil Neb] 2.5 mg IH TID 06/17/17 [History] RX: Quetiapine Fumarate [Seroquel] 200 mg PO HS 02/24/18 [History] RX: Levothyroxine Sodium [Levo-T] 75 mcg PO DAILY 05/13/18 [History] RX: Mirtazapine [Remeron] 15 mg PO HS 05/13/18 [History] RX: Umeclidinium Brm/Vilanterol Tr [Anoro Ellipta 62.5-25 Mcg INH] 1 puff IH DAILY 05/13/18 [History] RX: Venlafaxine XR (24 HR) [Effexor XR] 75 mg PO DAILY 05/13/18 [History] RX: Famotidine [Pepcid] 20 mg PO BID PRN 10/18/18 [History] RX: Fluticasone Furoate [Arnuity Ellipta] 100 mcg IH DAILY 10/18/18 [History] RX: Oxybutynin Chloride [Ditropan Xl] 15 mg PO DAILY 10/18/18 [History] RX: Tizanidine HCl [Zanaflex] 4 mg PO BID PRN 10/18/18 [History] RX: Metoprolol Succinate [Toprol Xl] 50 mg PO BID 10/19/18 [History] RX: OXcarbazepine [Oxcarbazepine] 600 mg PO TID 10/19/18 [History] RX: Roflumilast [Daliresp] 500 mcg PO DAILY 10/19/18 [History] RX: Venlafaxine XR (24 HR) [Effexor Xr] 150 mg PO DAILY 10/19/18 [History] RX: Benzonatate [Tessalon] 200 mg PO TID PRN #90 capsule 10/31/18 [Rx] Allergies/Adverse Reactions: Allergy/AdvReac Type Severity Reaction Status Date / Time diphenhydramine Allergy Hives Verified 10/28/18 17:43 [From Benadryl] egg Allergy Hives Verified 10/28/18 17:43 latex Allergy Rash Verified 10/28/18 17:43 Penicillins Allergy Difficulty Verified 10/28/18 17:43 Breathing tetracycline [Tetracycline] Allergy Difficulty Verified 10/28/18 17:43 Breathing acetic acid [From VoSol-HC] AdvReac Redness of Verified 10/28/18 17:43 Skin aloe vera AdvReac Redness of Verified 10/28/18 17:43 Skin bacitracin AdvReac Redness of Verified 10/28/18 17:43 [From Neosporin Skin ([id number])] capsaicin AdvReac Redness of Verified 10/28/18 17:43 Skin hydrocortisone AdvReac Redness of Verified 10/28/18 17:43 [From VoSol-HC] Skin Neomycin AdvReac Redness of Verified 10/28/18 17:43 [From Neosporin Skin ([id number])] polymyxin B AdvReac Redness of Verified 10/28/18 17:43 [From Neosporin Skin ([id number])] silver sulfadiazine AdvReac Redness of Verified 10/28/18 17:43 [From Chad] Skin Certification: Further, I certify that my clinical findings support that this patient is homebound (i.e. absences from home require considerable and taxing effort and are for medical reasons or oriental orthodox services or infrequently or short duration when for other reasons) because: Homebound Reason: Severity of cardiac or pulmonary status limits activity tolerance Attestation: My signature below is to certify that this patient is under my care and that I, or nurse practitioner, or a physician's doctor's assistant working with me, has a [id number] encounter with this patient. <Ned Cruz - Last Filed: 11/03/18 18:47> - Diagnosis (1) Acute exacerbation of chronic obstructive airways disease Status: Acute (2) CAD (coronary artery disease) Status: Chronic (3) HTN (hypertension) Status: Chronic (4) Acute respiratory failure with hypoxia Status: Acute (5) Hypothyroid Status: Chronic - Respiratory Orders Smoking Cessation: Smoking cessation has been advised. For more information, call the [place] Tobacco Quit Line at 2-062-GGYS-NOW. Certification: Further, I certify that my clinical findings support that this patient is homebound (i.e. absences from home require considerable and taxing effort and are for medical reasons or oriental orthodox services or infrequently or short duration when for other reasons) because: Attestation: My signature below is to certify that this patient is under my care and that I, or nurse practitioner, or a physician's doctor's assistant working with me, has a [id number] encounter with this patient. - Attending Attestation I examined this patient and my medical decision-making was reviewed with the Resident Physician. I agree with the documented findings, disposition and treatment plan as described except to the extent set forth below. This DC took greater than 30 min. given continuity, note, and visit with patient.
== END 2018-11-03 17:08 | disposition home health service (06) | DRG 140 ==
LOC: 2ANU
PROVIDERS: ADMIT Internal Medicine; ATTEND Internal Medicine

== ENCOUNTER 2019-09-30 13:51 | Inpatient (IN) ==
[2019-09-30 14:49] LABS: Basophils % 0.3 %; Eosinophils % 0.1 %; Hematocrit 39.7 % (35.3-44.9); Hemoglobin 12.6 g/dL (11.5-15.4); Immature Granulocytes % 0.7 % (0-4); Lymphocytes # 0.5 K/mcL (0.6-4.6); Lymphocytes % 4.6 %; Mean Corpuscular HGB Conc 31.7 g/dL (31.6-35.5); Mean Corpuscular Hemoglobin 30.1 pg (28.0-33.3); Mean Platelet Volume 9.2 fL (9.4-12.4); Monocytes # 0.2 K/mcL (0.0-1.3); Monocytes % 1.7 %; Neutrophils # 9.1 K/mcL (1.6-8.9); Platelet Count 288 K/mcL (140-400); Red Blood Count 4.18 M/mcL (3.82-4.97); Red Cell Distribution Width 14.2 % (11.5-14.5); Segmented Neutrophils % 92.6 %; White Blood Count 9.8 K/mcL (4.3-11.1)
[2019-09-30 15:14] LABS: BUN/Creatinine Ratio 9 (6-26); Blood Urea Nitrogen 6 mg/dL (6-20); Calcium 8.7 mg/dL (8.6-10.3); Carbon Dioxide 27 mEq/L (23-29); Chloride 94 mEq/L (98-107); Glucose 335 mg/dL (70-105); Osmolality,Calculated 279 (280-300); Sodium 129 mEq/L (136-145); Troponin I < 0.03 ng/mL (< 0.04); eGFR For African Americans > 60 (> 60); eGFR For Non-African Americans > 60 (> 60)
[2019-09-30] MEDS ORDERED: cefTRIAXone 1,000 MG in Water for inj. (sterile) 10 ML IVP ONE (16:27)
[2019-09-30] MEDS ORDERED: Azithromycin 500 MG in D5% in Water 250 ML IVPB ONE (16:27)
[2019-09-30] MEDS ORDERED: Ipratropium/Albuterol Neb 3 ML IH ONE (16:56)
[2019-09-30] MEDS ORDERED: Ipratropium/Albuterol Neb 3 ML IH PRN (17:06)
[2019-09-30] MEDS ORDERED: 0.9 % Sodium Chloride 1,000 ML IVC SCH (17:30)
[2019-09-30] MEDS ORDERED: Ondansetron 4 MG/2 ML VIAL ONE (17:34)
[2019-09-30] MEDS ORDERED: Ondansetron 4 MG/2 ML VIAL IVP ONE ×2 (17:37→17:38)
[2019-09-30 18:48] LABS: ABG Base Excess 4 mEq/L (-2 to 3); ABG HCO3 30 mEq/L (21-27); ABG Oxygen Saturation 86 % (95-98); ABG PCO2 51 mmHg (35-45); ABG PH 7.38 pH Units (7.32-7.45); ABG PO2 54 mmHg (85-104); ABG TCO2 32 mEq/L (20-26)
[2019-09-30] MEDS: traZODone 50 MG TABLET PO SCH (21:29)
[2019-09-30] MEDS: QUEtiapine Fumarate 100 MG TABLET PO SCH (21:29)
[2019-09-30] MEDS: Mirtazapine 15 MG TABLET PO SCH (21:30)
[2019-09-30] MEDS: Metoprolol XL (24 HR) Succ 50 MG TAB.ER.24H PO SCH (21:30)
[2019-09-30] MEDS: Ipratropium/Albuterol Neb 3 ML IH SCH (21:39)
[2019-09-30] MEDS: Budesonide/Formoterol 160/4.5 1 PUFF INH IH SCH (21:39)
[2019-09-30] MEDS: OXcarbazepine 150 MG TABLET PO SCH (22:11)
[2019-10-01] MEDS: Ipratropium/Albuterol Neb 3 ML IH SCH ×4 (03:31→22:10)
[2019-10-01 06:00] LABS: Basophils % 0.4 %; Eosinophils # 0.1 K/mcL (0.0-0.6); Eosinophils % 1.2 %; Hematocrit 38.9 % (35.3-44.9); Hemoglobin 12.4 g/dL (11.5-15.4); Immature Granulocytes % 0.5 % (0-4); Lymphocytes # 1.2 K/mcL (0.6-4.6); Lymphocytes % 15.2 %; Mean Corpuscular HGB Conc 31.9 g/dL (31.6-35.5); Mean Corpuscular Hemoglobin 30.5 pg (28.0-33.3); Mean Corpuscular Volume 95.8 fL (83.0-100.0); Mean Platelet Volume 9.4 fL (9.4-12.4); Monocytes # 0.7 K/mcL (0.0-1.3); Monocytes % 8.7 %; Neutrophils # 5.7 K/mcL (1.6-8.9); Platelet Count 277 K/mcL (140-400); Red Blood Count 4.06 M/mcL (3.82-4.97); Red Cell Distribution Width 14.2 % (11.5-14.5); White Blood Count 7.6 K/mcL (4.3-11.1)
[2019-10-01 06:09] LABS: BUN/Creatinine Ratio 12 (6-26); Blood Urea Nitrogen 7 mg/dL (6-20); Calcium 8.4 mg/dL (8.6-10.3); Carbon Dioxide 30 mEq/L (23-29); Chloride 97 mEq/L (98-107); Glucose 101 mg/dL (70-105); Osmolality,Calculated 274 (280-300); Potassium 3.8 mEq/L (3.5-5.1); Sodium 133 mEq/L (136-145); eGFR For African Americans > 60 (> 60); eGFR For Non-African Americans > 60 (> 60)
[2019-10-01] MEDS: Budesonide/Formoterol 160/4.5 1 PUFF INH IH SCH ×2 (09:24→22:10)
[2019-10-01] MEDS: Venlafaxine XR (24 HR) 150 MG CAP.ER.24H PO SCH (09:51)
[2019-10-01] MEDS: Venlafaxine XR (24 HR) 75 MG CAP.ER.24H PO SCH (09:51)
[2019-10-01] MEDS: *HR* LORazepam 0.5 MG TABLET PO PRN (09:52)
[2019-10-01] MEDS: Metoprolol XL (24 HR) Succ 50 MG TAB.ER.24H PO SCH ×2 (09:52→21:29)
[2019-10-01] MEDS: traZODone 50 MG TABLET PO SCH ×2 (09:52→21:28)
[2019-10-01] MEDS: *HR* Heparin 5,000 UNIT/ML VIAL SQ SCH ×2 (09:53→21:28)
[2019-10-01] MEDS: cefTRIAXone 1,000 MG in Water for inj. (sterile) 10 ML IVP SCH (09:53)
[2019-10-01] MEDS: Azithromycin 500 MG in D5% in Water 250 ML IVPB SCH (09:54)
[2019-10-01] MEDS: OXcarbazepine 150 MG TABLET PO SCH ×2 (11:49→21:29)
[2019-10-01 12:28] LABS: Adenovirus Not Detected (Not Detect); Bordetella Pertussis Not Detected (Not Detect); Chlamydophila pneumoniae Not Detected (Not Detect); Coronavirus 229E Not Detected (Not Detect); Coronavirus HKU1 Not Detected (Not Detect); Coronavirus NL63 Not Detected (Not Detect); Coronavirus OC43 Not Detected (Not Detect); Human Metapneumovirus Not Detected (Not Detect); Human Rhinovirus/Enterovirus Not Detected (Not Detect); Influenza A Subtype 2009 H1 Not Detected (Not Detect); Influenza B Not Detected (Not Detect); Mycoplasma pneumoniae Not Detected (Not Detect); Parainfluenza Virus 1 Not Detected (Not Detect); Parainfluenza Virus 2 Not Detected (Not Detect); Parainfluenza Virus 3 Not Detected (Not Detect); Parainfluenza Virus 4 Not Detected (Not Detect); Respiratory Syncytial Virus Not Detected (Not Detect)
[2019-10-01] MEDS: methylPREDNISolone 125 MG/2 ML VIAL IVP SCH ×2 (15:59→21:29)
[2019-10-01] MEDS ORDERED: methylPREDNISolone 125 MG/2 ML VIAL IVP SCH (17:06)
[2019-10-01] MEDS ORDERED: MIRTAZAPINE 15 MG PO SCH (21:00)
[2019-10-01] MEDS: QUEtiapine Fumarate 100 MG TABLET PO SCH (21:29)
[2019-10-01] MEDS: Mirtazapine 15 MG TABLET PO SCH (21:29)
[2019-10-02] MEDS: Ipratropium/Albuterol Neb 3 ML IH SCH ×4 (03:57→21:56)
[2019-10-02] MEDS: *HR* Heparin 5,000 UNIT/ML VIAL SQ SCH ×3 (04:46→21:09)
[2019-10-02] MEDS: *HR* LORazepam 0.5 MG TABLET PO PRN (04:46)
[2019-10-02] MEDS: methylPREDNISolone 125 MG/2 ML VIAL IVP SCH ×3 (07:47→22:07)
[2019-10-02] MEDS: Azithromycin 500 MG in D5% in Water 250 ML IVPB SCH (07:47)
[2019-10-02] MEDS: cefTRIAXone 1,000 MG in Water for inj. (sterile) 10 ML IVP SCH (07:48)
[2019-10-02] MEDS: Venlafaxine XR (24 HR) 75 MG CAP.ER.24H PO SCH (07:48)
[2019-10-02] MEDS: Venlafaxine XR (24 HR) 150 MG CAP.ER.24H PO SCH (07:48)
[2019-10-02] MEDS: OXcarbazepine 150 MG TABLET PO SCH ×2 (07:49→21:09)
[2019-10-02] MEDS: Metoprolol XL (24 HR) Succ 50 MG TAB.ER.24H PO SCH ×2 (07:49→21:09)
[2019-10-02] MEDS: traZODone 50 MG TABLET PO SCH ×2 (07:49→21:09)
[2019-10-02] MEDS: Budesonide/Formoterol 160/4.5 1 PUFF INH IH SCH ×2 (10:06→21:57)
[2019-10-02] MEDS: QUEtiapine Fumarate 100 MG TABLET PO SCH (21:09)
[2019-10-02] MEDS: Mirtazapine 15 MG TABLET PO SCH (21:09)
[2019-10-02] MEDS ORDERED: Acetaminophen 325 MG TABLET PO PRN (21:31)
[2019-10-03] MEDS: Ipratropium/Albuterol Neb 3 ML IH SCH ×2 (04:13→10:33)
[2019-10-03] MEDS: *HR* Heparin 5,000 UNIT/ML VIAL SQ SCH (05:09)
[2019-10-03] MEDS: Azithromycin 500 MG in D5% in Water 250 ML IVPB SCH (07:46)
[2019-10-03] MEDS: methylPREDNISolone 125 MG/2 ML VIAL IVP SCH (07:47)
[2019-10-03] MEDS: cefTRIAXone 1,000 MG in Water for inj. (sterile) 10 ML IVP SCH (07:48)
[2019-10-03] MEDS: Venlafaxine XR (24 HR) 150 MG CAP.ER.24H PO SCH (07:49)
[2019-10-03] MEDS: Venlafaxine XR (24 HR) 75 MG CAP.ER.24H PO SCH (07:50)
[2019-10-03] MEDS: Metoprolol XL (24 HR) Succ 50 MG TAB.ER.24H PO SCH (07:50)
[2019-10-03] MEDS: traZODone 50 MG TABLET PO SCH (07:50)
[2019-10-03 08:24] VITALS: BP 157/76
[2019-10-03] MEDS: OXcarbazepine 150 MG TABLET PO SCH (09:08)
[2019-10-03] MEDS: Budesonide/Formoterol 160/4.5 1 PUFF INH IH SCH (10:33)
== END 2019-10-03 11:35 | disposition home or self-care (01) | DRG 140 ==
LOC: EMEROOARM 13:51 → 2ANU 13:51 → SUATTDRO 17:14 → 2ANU 18:48
PROVIDERS: ADMIT Internal Medicine; ATTEND Internal Medicine